=== PATIENT | female | born 1980 | race African-American/Black ===

== ENCOUNTER 2021-02-05 20:51 | Emergency (ER) | payer SELFPAY | END 2021-02-05 22:00 | disposition left against medical advice (07) | LOC: ER 20:51 | DX: Z46.6 Encounter for fitting and adjustment of urinary device (principal); Z53.21 Procedure and treatment not carried out due to patient leaving prior to being seen by health care provider ==

== ENCOUNTER 2021-10-14 15:09 | Inpatient (IN) | payer MEDICAID ==
[2021-10-14] VITALS (7 sets, daily range): BP systolic 83–91; BP diastolic 51–64
[~2021-10-14] VITALS: Ht 172.7 cm; Wt 67.4 kg
[2021-10-14] MEDS ORDERED: IV NORMAL SALINE 1000ML BAG 1,000 ML IV ONE (15:30)
[2021-10-14] MEDS ORDERED: IV NORMAL SALINE 1000ML BAG 1,000 ML IV SCH (15:30)
--- NOTE | 2021-10-14 15:34 | RAD ---
Chest AP portable at 1521: Reason for examination: Altered mental status. Heart size is normal. Mediastinum is unremarkable. Lung beatty are clear. No acute bony abnormalities are seen. IMPRESSION: No acute cardiopulmonary disease evident. Electronically signed by: Dolores Guerrero MD (10/14/2021 3:31 PM) SATISH
[2021-10-14] MEDS ORDERED: INSULIN REGULAR 100 UNIT/ML 3ML VIAL. IV ONE ×2 (16:30→17:45)
[2021-10-14 16:35] LABS: BASO % 0 % (0-3); EOS % 0 % (0-3); LYMPH # 1.2 x10^3/uL (1.0-4.8); LYMPH % 10 % (24-48); MEAN CORPUSCULAR HEMOGLOBIN 29 pg (25-35); MEAN CORPUSCULAR HGB CONC 30 g/dL (31-37); MEAN CORPUSCULAR VOLUME 97 fL (79-100); MONO # 0.7 x10^3/uL (0.0-1.1); MONO % 6 % (0-9); NEUT # 10.1 x10^3/uL (1.8-7.7); NEUT % 84 % (31-73); PLATELET COUNT 335 x10^3/uL (140-400); RED BLOOD COUNT 2.05 x10^6/uL (3.50-5.40); RED CELL DISTRIBUTION WIDTH 17.2 % (11.5-14.5)
[2021-10-14 16:38] LABS: HEMOGLOBIN 5.9 g/dL (12.0-15.5)
[2021-10-14] MEDS ORDERED: CALCIUM GLUCONATE 1,000 MG/10 ML VIAL. IVP ONE (16:45)
--- NOTE | 2021-10-14 16:49 | PHYS DOC ---
Past Medical History Additional Past Medical Histor: SUPRAPUBIC CATH Past Surgical History: Other Additional Past Surgical Histo: LEFT TOES AMPUTATED, General Adult EDM: Chief Complaint: ALTERED MENTAL STATUS HPI: HPI: Patient is a 41 year old [f__sex] who presents with [] Review of Systems: Review of Systems: Unable to obtain due to mental status Heart Score: C/O Chest Pain: No Risk Factors: Risk Factors: DM, Current or recent (<one month) smoker, HTN, HLP, family history of CAD, obesity. Risk Scores: Score 0 - 3: 2.5% MACE over next 6 weeks - Discharge Home Score 4 - 6: 20.3% MACE over next 6 weeks - Admit for Clinical Observation Score 7 - 10: 72.7% MACE over next 6 weeks - Early Invasive Strategies Current Medications: Current Medications Medications (Trade) Dose Ordered Sig/Miriam Start Time Stop Time Status Last Admin Dose Admin Calcium Gluconate (Calcium Gluconate) 1,000 mg 1X ONCE 10/14/21 16:45 10/14/21 16:46 10/14/21 16:34 1,000 MG Insulin Human Regular (HumuLIN R VIAL) 10 unit 1X ONCE 10/14/21 16:30 10/14/21 16:31 DC 10/14/21 16:34 10 UNIT Sodium Chloride 1,000 ml @ 1,000 mls/hr 1X ONCE 10/14/21 15:30 10/14/21 16:29 DC 10/14/21 15:25 1,000 MLS/HR Allergies: Allergies: Allergies Coded Allergies Type Severity Reaction Last Updated Verified Unable to Assess 10/14/21 No Physical Exam: PE: Constitutional: Well developed, obtunded, retracts to painful stimuli. [] HENT: Normocephalic, atraumatic, bilateral external ears normal, oropharynx moist, no oral exudates, nose normal. [] Eyes: PERRLA, sluggish pupils, EOMI, conjunctiva normal, no discharge. [] Neck: Normal range of motion, no tenderness, supple, no stridor. [] Cardiovascular: Tachycardic, no murmur [] Lungs & Thorax: Bilateral breath sounds clear to auscultation [] Abdomen: Bowel sounds normal, soft, no tenderness, no masses, no pulsatile masses. Suprapubic catheter in place [] Skin: Lower extremity rashes bilaterally Back: No tenderness, no CVA tenderness. [] Extremities: Toe amputations noted [] Neurologic: Not oriented, obtunded, no focal deficits noted. [] Psychologic: Affect normal, judgement normal, mood normal. [] Current Patient Data: Labs: Laboratory Tests Test 10/14/21 16:10 White Blood Count 12.0 x10^3/uL (4.0-11.0) H Red Blood Count 2.05 x10^6/uL (3.50-5.40) L Hemoglobin 5.9 g/dL (12.0-15.5) *L Hematocrit 20.0 % (36.0-47.0) L Mean Corpuscular Volume 97 fL (79-100) Mean Corpuscular Hemoglobin 29 pg (25-35) Mean Corpuscular Hemoglobin Concent 30 g/dL (31-37) L Red Cell Distribution Width 17.2 % (11.5-14.5) H Platelet Count 335 x10^3/uL (140-400) Neutrophils (%) (Auto) 84 % (31-73) H Lymphocytes (%) (Auto) 10 % (24-48) L Monocytes (%) (Auto) 6 % (0-9) Eosinophils (%) (Auto) 0 % (0-3) Basophils (%) (Auto) 0 % (0-3) Neutrophils # (Auto) 10.1 x10^3/uL (1.8-7.7) H Lymphocytes # (Auto) 1.2 x10^3/uL (1.0-4.8) Monocytes # (Auto) 0.7 x10^3/uL (0.0-1.1) Eosinophils # (Auto) 0.0 x10^3/uL (0.0-0.7) Basophils # (Auto) 0.0 x10^3/uL (0.0-0.2) Laboratory Tests 10/14/21 16:10 Vital Signs: Vital Signs Date Time Temp Pulse Resp B/P (MAP) Pulse Ox O2 Delivery O2 Flow Rate FiO2 10/14/21 15:09 98 16 82/50 (61) 99 EKG: EKG: Peaked T waves [] Radiology/Procedures: Radiology/Procedures: Chest x-ray without any acute findings CT head within normal limits [] Impression: Altered mental status, hyperglycemia Course & Med Decision Making: Course & Med Decision Making Pertinent Labs and Imaging studies reviewed. (See chart for details) 41-year-old female seen and examined by myself, brought in by EMS. Unknown history, patient altered. Will attempt to speak to family. Central line placed, serum labs and urinalysis ordered. Recheck 1648: Still awaiting labs, patient mother interviewed. Patient found down in bedroom. Per mother, patient has not been feeling well over the last week. Patient has multiple comorbidities. 1715: Patient on 15 units of Lantus and 22 of Toujeo at home with TID humalog. 1735: Glucose 948, potassium 8.5, CO2 6, GFR 11, creatinine 4.4. Critical patient, patient given calcium gluconate, started on insulin drip. Given 2 L normal saline, third liter started. Patient admitted to the service of Dr. Geller to ICU Pt in stable, but guarded condition Kishore Disclaimer: Kishore Disclaimer: This electronic medical record was generated, in whole or in part, using a voice recognition dictation system. Departure Departure Referrals: NO PCP (PCP) AUBRIE PELAYO MD October 14, 2021 16:49
[2021-10-14 16:58] LABS: PROTHROMBIN TIME PATIENT 16.9 SEC (11.7-14.0)
--- NOTE | 2021-10-14 16:58 | RAD ---
XR CHEST 1V Clinical History: Reason: CVL placement / Spl. Instructions: / History: Technique: AP view of the chest was obtained at 10/14/2021 4:14 PM. Comparison: None. Findings: The left jugular line crosses the midline and is directed downward to the right near the confluence o f the great veins. The cardiomediastinal silhouette is normal. The pulmonary vasculature is normal. The lungs and pleura l margins are clear. Impression: 1. The right jugular line has its tip near the confluence of the great veins. 2. No pneumothorax. Electronically signed by: Sharath Rees III, MD (10/14/2021 4:56 PM) [facility]
--- NOTE | 2021-10-14 16:58 | EKG ---
[facility] [address] [place] [address] Test Date: 2021-10-14 Test Time: 16:12:34 Pat Name: CAT LYNN Department: Room: Gender: F [employer]: : 1980 Requested By: AUBRIE Asif Number: [id number] Reading MD: Kvng Toney Measurements Intervals [place] Rate: 94 P: 208 VT: 166 QRS: -60 QRSD: 112 T: 36 QT: 400 QTc: 500 Interpretive Statements SINUS RHYTHM ABNORMAL LEFT AXIS DEVIATION LEFT ANTERIOR FASCICULAR BLOCK PROLONGED QT ABNORMAL ECG RI6.02 No previous ECG available for comparison Electronically Signed On 10-16-2021 10:08:04 CDT by Kvng Tonye
[2021-10-14 17:02] LABS: ALBUMIN 1.6 g/dL (3.4-5.0); ALBUMIN/GLOBULIN RATIO 0.3 (1.0-1.7); CALCIUM 7.9 mg/dL (8.5-10.1); CREATININE 4.4 mg/dL (0.6-1.0); MAGNESIUM 2.2 mg/dL (1.8-2.4); TOTAL BILIRUBIN 0.5 mg/dL (0.2-1.0); TOTAL PROTEIN 7.2 g/dL (6.4-8.2)
[2021-10-14] MEDS ORDERED: GABA600T7 PO (17:07)
[2021-10-14] MEDS ORDERED: HYDR-2765 PO (17:09)
[2021-10-14] MEDS ORDERED: FLUC200T6 PO (17:09)
[2021-10-14] MEDS ORDERED: HYOS0.1222 PO (17:09)
[2021-10-14] MEDS ORDERED: ZOLP10TA PO (17:09)
[2021-10-14] MEDS ORDERED: ATOR40TA59 PO (17:10)
[2021-10-14] MEDS ORDERED: MIDO2.5T PO (17:10)
[2021-10-14] MEDS ORDERED: DULO30CA2 PO (17:11)
[2021-10-14] MEDS ORDERED: FERR-36 PO (17:12)
--- NOTE | 2021-10-14 17:19 | RAD ---
CT Head W/O Contrast: History: Reason: altered mental status / Spl. Instructions: / History: Comparison: none Axial images were obtained without contrast. The bone and white matter appears normal and symmetrical for the patients age. There is no mass effe ct, extraaxial fluid collections or hydrocephalus. There is no gross bleed. There is no focal loss of bone-white matter distinction to suggest acute ischemia, i.e. stroke. Impression: No acute findings. PQRS Compliance Statement: One or more of the following individualized dose reduction techniques were utilized for this examinat ion: 1. Automated exposure control 2. Adjustment of the mA and/or kV according to patient size 3. Use of iterative reconstruction technique Electronically signed by: Sharath Rees III, MD (10/14/2021 5:16 PM) [facility]
[2021-10-14 17:26] LABS: POTASSIUM 8.5 mmol/L (3.5-5.1)
[2021-10-14] MEDS ORDERED: PIPERACILLIN/TAZOBACTAM 3.375 GM in IV NORMAL SALINE 50ML 50 ML IV ONE (17:30)
--- NOTE | 2021-10-14 17:42 | PDOC1 ---
History and Physical Date of Service: DOS: DATE: 10/14/21 TIME: 17:37 Chief Complaint: Chief Complain: Found unresponsive History of Present Illness: HPI: History obtained from discussion with the ED physician and mother at bedside 41-year-old female with past medical history of diabetes mellitus type 1, insulin-dependent, multiple digital amputations and nonhealing right heel wound, suprapubic catheter who presents with being found unresponsive. Patient been sick for a long time and has been noncompliant with her medications. She was seen at recently but the mother is unsure why. Patient is unable to provide any of her own history due to lethargy and some altered mental status. Patient is speaking nonsensical words. Review of systems is limited due to this. Past Medical/Surgical History: PMH/PSH: Diabetes mellitus type 1, suprapubic catheter, multiple amputations which includes her bilateral digits, left toes Allergies: Allergies: Coded Allergies: Unable to Assess (Unverified , 10/14/21) AMS AT ADMIT Family History: Family History: Diabetes Social History: Social History: Limited due to altered mental status Current Medications: Current Medications Current Medications Sodium Chloride 1,000 ml @ 1,000 mls/hr Q1H IV Last administered on 10/14/21at 16:27; Start 10/14/21 at 15:30; Stop 10/14/21 at 16:29; Status DC Sodium Chloride 1,000 ml @ 1,000 mls/hr 1X ONCE IV Last administered on 10/14/21at 15:25; Start 10/14/21 at 15:30; Stop 10/14/21 at 16:29; Status DC Insulin Human Regular (HumuLIN R VIAL) 10 unit 1X ONCE IV Last administered on 10/14/21at 16:34; Start 10/14/21 at 16:30; Stop 10/14/21 at 16:31; Status DC Calcium Gluconate (Calcium Gluconate) 1,000 mg 1X ONCE IVP Last administered on 10/14/21at 16:34; Start 10/14/21 at 16:45; Stop 10/14/21 at 16:46; Status DC Piperacillin Sod/ Tazobactam Sod 3.375 gm/Sodium Chloride 50 ml @ 100 mls/hr 1X ONCE IV ; Start 10/14/21 at 17:30; Stop 10/14/21 at 17:29; Status DC Insulin Human Regular (HumuLIN R VIAL) 10 unit 1X ONCE IV ; Start 10/14/21 at 17:45; Stop 10/14/21 at 17:46 Insulin Human Regular 100 unit/ Sodium Chloride 101 ml @ 0 mls/hr 1X ONCE IV ; Start 10/14/21 at 18:00; Stop 10/14/21 at 18:01 Piperacillin Sod/ Tazobactam Sod 2.25 gm/Sodium Chloride 50 ml @ 100 mls/hr 1X ONCE IV ; Start 10/14/21 at 18:00; Stop 10/14/21 at 18:29 Piperacillin Sod/ Tazobactam Sod (Zosyn Per Pharmacy) 1 each PRN DAILY PRN MC SEE COMMENTS; Start 10/14/21 at 17:45; Status UNV Vancomycin HCl (Vanco Per Pharmacy) 1 each PRN DAILY PRN MC SEE COMMENTS; Start 10/14/21 at 17:45; Status UNV Sennosides (Senna) 17.2 mg PRN BID PRN PO CONSTIPATION; Start 10/14/21 at 17:45; Status UNV Docusate Sodium (Colace) 100 mg PRN DAILY PRN PO HARD STOOLS; Start 10/14/21 at 17:45; Status UNV Ondansetron HCl (Zofran) 4 mg PRN Q6HRS PRN IVP NAUSEA/VOMITING, 1st CHOICE; Start 10/14/21 at 17:45; Status UNV Dextrose (Dextrose 50%-Water Syringe) 12.5 gm PRN Q15MIN PRN IV SEE COMMENTS; Start 10/14/21 at 17:45; Status UNV Sodium Chloride 1,000 ml @ 200 mls/hr Q5H IV ; Start 10/14/21 at 17:45; Stop 10/15/21 at 17:44; Status UNV Acetaminophen (Tylenol) 650 mg PRN Q4HRS PRN PO TEMP OVER 100.4F OR MILD PAIN; Start 10/14/21 at 17:45; Status UNV Lorazepam (Ativan) 0.5 mg PRN Q6HRS PRN PO ANXIETY / AGITATION; Start 10/14/21 at 17:45; Status UNV Lorazepam (Ativan Inj) 0.25 mg PRN Q4HRS PRN IV ANXIETY / AGITATION; Start 10/14/21 at 17:45; Status UNV Heparin Sodium (Porcine) (Heparin Sodium) 5,000 unit Q12HR SQ ; Start 10/14/21 at 21:00; Status UNV Acetaminophen/ Hydrocodone Bitart (Lortab 5/325) 1 tab PRN Q4HRS PRN PO MILD PAIN 1-3; Start 10/14/21 at 17:45; Status UNV Morphine Sulfate (Morphine Sulfate) 1 mg PRN Q1HR PRN IV PAIN; Start 10/14/21 at 17:45; Status UNV Active Scripts Active Reported Iron (Ferrous Sulfate) 325 Mg Tablet 1 Tab PO DAILY 30 Days Cymbalta (Duloxetine Hcl) 30 Mg Capsule. 1 Cap PO DAILY Atorvastatin Calcium 40 Mg Tablet 1 Tab PO DAILY Midodrine Hcl 2.5 Mg Tablet 2.5 Mg PO DAILY Hydrocodone-Apap 7.5-325 (Hydrocodone Bit/Acetaminophen) 1 Tab Tablet 1 Tab PO PRN Q6HRS PRN Ambien (Zolpidem Tartrate) 10 Mg Tablet 10 Mg PO PRN QHS PRN Fluconazole 200 Mg Tablet 1 Tab PO DAILY Hyoscyamine Sulfate 0.125 Mg Tab.rapdis 0.125 Mg PO Q4HRS Gabapentin 600 Mg Tablet 900 Mg PO DAILY ROS: Review of Systems Review of System REVIEW OF SYSTEMS: Limited due to altered mental status Physical Exam: Vital Signs: Vital Signs Date Time Temp Pulse Resp B/P (MAP) Pulse Ox O2 Delivery O2 Flow Rate FiO2 10/14/21 15:09 98 16 82/50 (61) 99 Physcial Exam: General: malnourishment disheveled appearing. Cachectic HEENT: Pupils equally round and reactive to light, EOMI, no discharge, normal conjunctiva Neck: Supple, no nuchal rigidity, no JVD, trachea midline, no tenderness. Left IJ placed central line. Cardiac: RRR, no murmurs, no gallops, no rubs Chest/Lungs: CTAB, no wheeze, no rhonchi, no crackles Abdomen: soft, non-distended, no guarding, no peritoneal signs, non-tender suprapubic catheter in place without any surrounding signs of infection. There is purulent cloudy drainage of urine in the Sifuentes bag. Back: No tenderness Extremities: Multiple bilateral digits have been amputated. There is a nonhealing open and ulcer on the heel of the right heel foot. Multiple old appearing skin lesions on the shins. Neuro: Patient is alert and awake but lethargic and speaking in nonsensical words. GCS of 12 Labs: Labs: Laboratory Tests Test 10/14/21 16:10 White Blood Count 12.0 x10^3/uL (4.0-11.0) Red Blood Count 2.05 x10^6/uL (3.50-5.40) Hemoglobin 5.9 g/dL (12.0-15.5) Hematocrit 20.0 % (36.0-47.0) Mean Corpuscular Volume 97 fL (79-100) Mean Corpuscular Hemoglobin 29 pg (25-35) Mean Corpuscular Hemoglobin Concent 30 g/dL (31-37) Red Cell Distribution Width 17.2 % (11.5-14.5) Platelet Count 335 x10^3/uL (140-400) Neutrophils (%) (Auto) 84 % (31-73) Lymphocytes (%) (Auto) 10 % (24-48) Monocytes (%) (Auto) 6 % (0-9) Eosinophils (%) (Auto) 0 % (0-3) Basophils (%) (Auto) 0 % (0-3) Neutrophils # (Auto) 10.1 x10^3/uL (1.8-7.7) Lymphocytes # (Auto) 1.2 x10^3/uL (1.0-4.8) Monocytes # (Auto) 0.7 x10^3/uL (0.0-1.1) Eosinophils # (Auto) 0.0 x10^3/uL (0.0-0.7) Basophils # (Auto) 0.0 x10^3/uL (0.0-0.2) Prothrombin Time 16.9 SEC (11.7-14.0) Prothromb Time International Ratio 1.4 (0.8-1.1) Activated Partial Thromboplast Time 30 SEC (24-38) Sodium Level 132 mmol/L (136-145) Potassium Level 8.5 mmol/L (3.5-5.1) Chloride Level 93 mmol/L (98-107) Carbon Dioxide Level 6 mmol/L (21-32) Anion Gap 33 (6-14) Blood Urea Nitrogen 62 mg/dL (7-20) Creatinine 4.4 mg/dL (0.6-1.0) Estimated GFR (Cockcroft-Gault) 11.0 BUN/Creatinine Ratio 14 (6-20) Glucose Level 948 mg/dL (70-99) Lactic Acid Level 3.1 mmol/L (0.4-2.0) Calcium Level 7.9 mg/dL (8.5-10.1) Magnesium Level 2.2 mg/dL (1.8-2.4) Total Bilirubin 0.5 mg/dL (0.2-1.0) Aspartate Amino Transf (AST/SGOT) 25 U/L (15-37) Alanine Aminotransferase (ALT/SGPT) 10 U/L (14-59) Alkaline Phosphatase 128 U/L (46-116) Troponin I High Sensitivity 11 ng/L (4-50) AR-Uuw-U-Type Natriuretic Peptide 2969 pg/mL (0-124) Total Protein 7.2 g/dL (6.4-8.2) Albumin 1.6 g/dL (3.4-5.0) Albumin/Globulin Ratio 0.3 (1.0-1.7) Lipase 145 U/L (73-393) Thyroid Stimulating Hormone (TSH) 0.830 uIU/mL (0.358-3.74) Laboratory Tests Test 10/14/21 16:10 White Blood Count 12.0 x10^3/uL (4.0-11.0) Red Blood Count 2.05 x10^6/uL (3.50-5.40) Hemoglobin 5.9 g/dL (12.0-15.5) Hematocrit 20.0 % (36.0-47.0) Mean Corpuscular Volume 97 fL (79-100) Mean Corpuscular Hemoglobin 29 pg (25-35) Mean Corpuscular Hemoglobin Concent 30 g/dL (31-37) Red Cell Distribution Width 17.2 % (11.5-14.5) Platelet Count 335 x10^3/uL (140-400) Neutrophils (%) (Auto) 84 % (31-73) Lymphocytes (%) (Auto) 10 % (24-48) Monocytes (%) (Auto) 6 % (0-9) Eosinophils (%) (Auto) 0 % (0-3) Basophils (%) (Auto) 0 % (0-3) Neutrophils # (Auto) 10.1 x10^3/uL (1.8-7.7) Lymphocytes # (Auto) 1.2 x10^3/uL (1.0-4.8) Monocytes # (Auto) 0.7 x10^3/uL (0.0-1.1) Eosinophils # (Auto) 0.0 x10^3/uL (0.0-0.7) Basophils # (Auto) 0.0 x10^3/uL (0.0-0.2) Prothrombin Time 16.9 SEC (11.7-14.0) Prothromb Time International Ratio 1.4 (0.8-1.1) Activated Partial Thromboplast Time 30 SEC (24-38) Sodium Level 132 mmol/L (136-145) Potassium Level 8.5 mmol/L (3.5-5.1) Chloride Level 93 mmol/L (98-107) Carbon Dioxide Level 6 mmol/L (21-32) Anion Gap 33 (6-14) Blood Urea Nitrogen 62 mg/dL (7-20) Creatinine 4.4 mg/dL (0.6-1.0) Estimated GFR (Cockcroft-Gault) 11.0 BUN/Creatinine Ratio 14 (6-20) Glucose Level 948 mg/dL (70-99) Lactic Acid Level 3.1 mmol/L (0.4-2.0) Calcium Level 7.9 mg/dL (8.5-10.1) Magnesium Level 2.2 mg/dL (1.8-2.4) Total Bilirubin 0.5 mg/dL (0.2-1.0) Aspartate Amino Transf (AST/SGOT) 25 U/L (15-37) Alanine Aminotransferase (ALT/SGPT) 10 U/L (14-59) Alkaline Phosphatase 128 U/L (46-116) Troponin I High Sensitivity 11 ng/L (4-50) PJ-Tmf-R-Type Natriuretic Peptide 2969 pg/mL (0-124) Total Protein 7.2 g/dL (6.4-8.2) Albumin 1.6 g/dL (3.4-5.0) Albumin/Globulin Ratio 0.3 (1.0-1.7) Lipase 145 U/L (73-393) Thyroid Stimulating Hormone (TSH) 0.830 uIU/mL (0.358-3.74) Images: Images PROCEDURE: CT HEAD WO CONTRAST CT Head W/O Contrast: History: Reason: altered mental status / Spl. Instructions: / History: Comparison: none Axial images were obtained without contrast. The bone and white matter appears normal and symmetrical for the patients age. There is no mass effect, extraaxial fluid collections or hydrocephalus. There is no gross bleed. There is no focal loss of bone-white matter distinction to suggest acute ischemia, i.e. stroke. Impression: No acute findings. PROCEDURE: PORTABLE CHEST 1V XR CHEST 1V Clinical History: Reason: CVL placement / Spl. Instructions: / History: Technique: AP view of the chest was obtained at 10/14/2021 4:14 PM. Comparison: None. Findings: The left jugular line crosses the midline and is directed downward to the right near the confluence of the great veins. The cardiomediastinal silhouette is normal. The pulmonary vasculature is normal. The lungs and pleural margins are clear. Impression: 1. The right jugular line has its tip near the confluence of the great veins. 2. No pneumothorax. Assessment/Plan Assessment/Plan Sepsis Hemodynamic instability Acute metabolic encephalopathy DKA Severe hyperkalemia with EKG changes Anion gap metabolic acidosis due to above TAMARA due to vasomotor nephropathy Normocytic anemia due to MARISELA versus acute blood loss Severe protein malnutrition Admit to ICU for further management Continue empiric IV antibiotics Pending urine analysis and urine cultures ABG on admission pending urine and blood ketones Pending plasma osmolarity Continue serial inspections and examination for sources that caused ketoacidotic state Continue IV insulin starting at 0.1 units per kg When glucose is less than 200, AG is closed, patient able to eat, and HCO3 greater than 15, then transition with subcu insulin 0.1 units/kg every 2 hours for at least 2 hours Continue IV fluids of 1 to 1.5 L/h until a total of 5 L is replenished Switch to one half NS at half the rate if NA is normal or elevated As needed D50 W or add D5 to IV fluids if Accu-Cheks are less than 200 Maintain potassium between 3.5-5, if potassium falls below 3.3, stop insulin and add 40 mEq/h of potassium Maintained p.o. 3 greater than 1.0 If arterial pH is below 6.9, give 100 mEq of sodium bicarb +20 mEq of potassium Every 2-4 hours BMP and a be checked until stable Every hour Accu-Cheks while on insulin Urology consult for suprapubic catheter management Pending occult stool collection Strict I's/O Monitor urine output Avoid nephrotoxic agents Pending 2 units PRBC transfusion Trend CBC Heparin for DVT prophylaxis Protonix GI prophylaxis ADA diet CODE STATUS full Discussed with RN and SW Disposition continue ICU care DPOA: Mother A total of 50 minutes of critical care time was spent in reviewing chart, labs, and images. Discussed with RN and SW. Justifications for Admission Other Justification ABHI JETER MD October 14, 2021 17:42
[2021-10-14] MEDS ORDERED: LORazepam 0.5 MG TABLET PO PRN (17:45)
[2021-10-14] MEDS ORDERED: MORPHINE SULFATE 2 MG/ML INJ. IVP PRN (17:45)
[2021-10-14] MEDS ORDERED: PIP/TAZO PER PHARMACY MC PRN (17:45)
[2021-10-14] MEDS ORDERED: diphenhydrAMINE 50 MG/ML VIAL IVP PRN (17:45)
[2021-10-14] MEDS ORDERED: ONDANSETRON PF 4 MG/2 ML VIAL. IVP PRN (17:45)
[2021-10-14] MEDS ORDERED: DEXTROSE 50% 25 GM / 50ML DISP.SYRIN. IV PRN (17:45)
[2021-10-14] MEDS ORDERED: PROCHLORPERAZINE 10 MG/2 ML VIAL. IV PRN (17:45)
[2021-10-14] MEDS ORDERED: DOCUSATE SODIUM 100 MG CAPSULE. PO PRN (17:45)
[2021-10-14] MEDS ORDERED: ZOLPIDEM 5 MG TABLET. PO PRN (17:45)
[2021-10-14] MEDS ORDERED: ACETAMINOPHEN 325 MG TABLET. PO PRN (17:45)
[2021-10-14] MEDS ORDERED: diphenhydrAMINE HCL 25 MG CAPSULE PO PRN ×2 (17:45)
[2021-10-14] MEDS ORDERED: SENNOSIDES 8.6 MG TABLET PO PRN (17:45)
[2021-10-14] MEDS ORDERED: PIPERACILLIN/TAZOBACTAM 2.25 GM in IV NORMAL SALINE 50ML 50 ML IV ONE (18:00)
[2021-10-14] MEDS ORDERED: INSULIN REGULAR VIAL 100 UNIT in IV NORMAL SALINE 100ML 100 ML IV ONE (18:00)
[2021-10-14 18:11] LABS: BASE EXCESS COOX -21 mmol/L (-3-3); HCO3 COOX 5 mmol/L (21-28); METHEMOGLOBIN 0.8 % (0.0-1.9); OXYHEMOGLOBIN 96.3 %; PO2 COOX 131 mmHg (75-108); SAT O2 COOX 97 % (92-99)
[2021-10-14 18:13] LABS: PCO2 COOX 15 mmHg (35-46)
[2021-10-14] MEDS: IV NORMAL SALINE 1000ML BAG 1,000 ML IV SCH ×2 (18:44→20:00)
[2021-10-14] MEDS ORDERED: VANCOMYCIN 750 MG in IV NORMAL SALINE 250ML 250 ML IV ONE (19:00)
[2021-10-14 19:23] LABS: BACTERIA,URINE MANY /HPF (0-FEW); WBC,URINE >40 /HPF (0-4)
[2021-10-14 19:28] LABS: AMPHETAMINE/METHAMPHETAMINE NEG (NEG); BARBITURATES NEG (NEG); BENZODIAZEPINES NEG (NEG); CANNABINOIDS NEG (NEG); COCAINE NEG (NEG); METHADONE NEG (NEG); OPIATES POS (NEG); PHENCYCLIDINE NEG (NEG)
[2021-10-14] MEDS ORDERED: SODIUM BICARB ADULT 8.4% 50 MEQ/50 ML DISP.SYRIN. ONE (19:54)
[2021-10-14] MEDS ORDERED: SODIUM BICARB ADULT 8.4% 50 MEQ/50 ML DISP.SYRIN. IV ONE (20:30)
[2021-10-14] MEDS: HEPARIN for SUB-Q USE 5,000 UNIT/ML VIAL. SQ SCH (21:00)
[2021-10-14] MEDS: PANTOPRAZOLE IV PUSH 40 MG VIAL. IVP SCH (21:22)
[2021-10-14 21:33] LABS: CALCIUM 7.8 mg/dL (8.5-10.1); CREATININE 4.3 mg/dL (0.6-1.0); GFR 13.7; MAGNESIUM 1.8 mg/dL (1.8-2.4); PHOSPHORUS 4.2 mg/dL (2.6-4.7)
[2021-10-15] VITALS (23 sets, daily range): BP systolic 77–137; BP diastolic 59–88
[2021-10-15] MEDS ORDERED: INSULIN REGULAR VIAL 100 UNIT in IV NORMAL SALINE 100ML 100 ML IV PRN
[2021-10-15] MEDS: IV NORMAL SALINE 1000ML BAG 1,000 ML IV SCH ×3 (00:34→16:40)
[2021-10-15 01:50] LABS: CALCIUM 7.6 mg/dL (8.5-10.1); GFR 14.9; MAGNESIUM 1.6 mg/dL (1.8-2.4); PHOSPHORUS 2.8 mg/dL (2.6-4.7); POTASSIUM 4.5 mmol/L (3.5-5.1)
[2021-10-15] MEDS: IV DEXTROSE 5 %-0.45 % NACL 1,000 ML IV SCH ×3 (01:56→10:50)
[2021-10-15 05:10] LABS: BASO % 0 % (0-3); EOS # 0.1 x10^3/uL (0.0-0.7); EOS % 1 % (0-3); HEMATOCRIT 22.7 % (36.0-47.0); HEMOGLOBIN 7.5 g/dL (12.0-15.5); LYMPH % 18 % (24-48); MEAN CORPUSCULAR HEMOGLOBIN 28 pg (25-35); MEAN CORPUSCULAR HGB CONC 33 g/dL (31-37); MONO # 0.6 x10^3/uL (0.0-1.1); MONO % 6 % (0-9); NEUT # 8.2 x10^3/uL (1.8-7.7); NEUT % 75 % (31-73); PLATELET COUNT 277 x10^3/uL (140-400); RED BLOOD COUNT 2.67 x10^6/uL (3.50-5.40); RED CELL DISTRIBUTION WIDTH 16.8 % (11.5-14.5)
[2021-10-15 05:42] LABS: CALCIUM 7.7 mg/dL (8.5-10.1); CREATININE 3.9 mg/dL (0.6-1.0); GFR 15.3; MAGNESIUM 1.5 mg/dL (1.8-2.4); PHOSPHORUS 2.5 mg/dL (2.6-4.7); POTASSIUM 4.3 mmol/L (3.5-5.1)
[2021-10-15] MEDS: PIPERACILLIN/TAZOBACTAM 2.25 GM in IV NORMAL SALINE 50ML 50 ML IV SCH ×3 (05:50→22:16)
[2021-10-15 05:53] LABS: MEAN CORPUSCULAR VOLUME 85 fL (79-100)
[2021-10-15] MEDS: POTASSIUM CHLORIDE 10MEQ 100 ML IV SCH ×2 (06:35→07:45)
[2021-10-15 08:27] LABS: BASE EXCESS ABG -5 mmol/L (-3-3); HCO3 ABG 20 mmol/L (21-28); PCO2 ABG 38 mmHg (35-46); PO2 ABG 94 mmHg (75-108); SAT O2 ABG 97 % (92-99)
[2021-10-15 08:45] LABS: FIO2 ABG 21%
[2021-10-15] MEDS: PANTOPRAZOLE IV PUSH 40 MG VIAL. IVP SCH (08:47)
[2021-10-15] MEDS: HEPARIN for SUB-Q USE 5,000 UNIT/ML VIAL. SQ SCH ×2 (09:00→20:52)
--- NOTE | 2021-10-15 11:37 | PDOC2 ---
CONSULT Date of Consult Date of Consult DATE: 10/15/21 TIME: 11:29 Reason for Consult Reason for Consult: TAMARA AND HIGH K Referring Physician Referring Physician: STEFFANY Identification/Chief Complaint Chief Complaint CONFUSION Source Source: Chart review History of Present Illness Reason for Visit: THIS IS A 41 YR OLD FOUND UNRESPONSIVE. HAS HX OF DM I WITH MULTIPLE END ORGAN DAMAGE, HX OF NON HEALING WOUNDS AND SPC FOR RETENTION. UNKNOWN IF ANY CKD. SHE IS IN DKA WITH INITIAL K OF 8.5 AND CR OF 4.4 WITH SEVERE MET ACIDOSIS AND AN UTI. SHE IS AROUSABLE BUT CONFUSED. ACIDEMIA WITH PH OF 7.15 WITH MET ACIDOSIS AND ATTEMPTED COMPENSATION WITH RESP ALKALOSIS. CRITICALLY ILL AND IN THE ICU NOW. SHE ALSO HAS MILD LEUCOCYTOSIS AND SEVERE ANEMIA WITH HGB OF 5.9 Past Medical History Past Medical History PAD Cardiovascular: CHF CENTRAL NERVOUS SYSTEM: Periperal neuropathy Renal/: Chronic renal insuff, Other (UNKNOWN) Endocrine: Diabetes Past Surgical History Past Surgical History SPC, DIGIT AMP Family History Family History: Diabetes, Hypertension Social History No ALCOHOL: none Lives: with Family Current Medications Current Medications Current Medications Sodium Chloride 1,000 ml @ 1,000 mls/hr Q1H IV Last administered on 10/14/21at 16:27; Start 10/14/21 at 15:30; Stop 10/14/21 at 16:29; Status DC Sodium Chloride 1,000 ml @ 1,000 mls/hr 1X ONCE IV Last administered on 10/14/21at 15:25; Start 10/14/21 at 15:30; Stop 10/14/21 at 16:29; Status DC Insulin Human Regular (HumuLIN R VIAL) 10 unit 1X ONCE IV Last administered on 10/14/21at 16:34; Start 10/14/21 at 16:30; Stop 10/14/21 at 16:31; Status DC Calcium Gluconate (Calcium Gluconate) 1,000 mg 1X ONCE IVP Last administered on 10/14/21at 16:34; Start 10/14/21 at 16:45; Stop 10/14/21 at 16:46; Status DC Piperacillin Sod/ Tazobactam Sod 3.375 gm/Sodium Chloride 50 ml @ 100 mls/hr 1X ONCE IV ; Start 10/14/21 at 17:30; Stop 10/14/21 at 17:29; Status DC Insulin Human Regular (HumuLIN R VIAL) 10 unit 1X ONCE IV ; Start 10/14/21 at 17:45; Stop 10/14/21 at 17:54; Status DC Insulin Human Regular 100 unit/ Sodium Chloride 101 ml @ 0 mls/hr 1X ONCE IV Last administered on 10/14/21at 18:49; Start 10/14/21 at 18:00; Stop 10/14/21 at 18:01; Status DC Piperacillin Sod/ Tazobactam Sod 2.25 gm/Sodium Chloride 50 ml @ 100 mls/hr 1X ONCE IV Last administered on 10/14/21at 19:56; Start 10/14/21 at 18:00; Stop 10/14/21 at 18:29; Status DC Piperacillin Sod/ Tazobactam Sod (Zosyn Per Pharmacy) 1 each PRN DAILY PRN MC SEE COMMENTS; Start 10/14/21 at 17:45 Vancomycin HCl (Vanco Per Pharmacy) 1 each PRN DAILY PRN MC SEE COMMENTS; Start 10/14/21 at 17:45 Sennosides (Senna) 17.2 mg PRN BID PRN PO CONSTIPATION; Start 10/14/21 at 17:45 Docusate Sodium (Colace) 100 mg PRN DAILY PRN PO HARD STOOLS; Start 10/14/21 at 17:45 Ondansetron HCl (Zofran) 4 mg PRN Q6HRS PRN IVP NAUSEA/VOMITING, 1st CHOICE; Start 10/14/21 at 17:45 Dextrose (Dextrose 50%-Water Syringe) 12.5 gm PRN Q15MIN PRN IV SEE COMMENTS; Start 10/14/21 at 17:45 Sodium Chloride 1,000 ml @ 200 mls/hr Q5H IV Last administered on 10/15/21at 10:51; Start 10/14/21 at 17:45; Stop 10/15/21 at 17:44 Acetaminophen (Tylenol) 650 mg PRN Q4HRS PRN PO TEMP OVER 100.4F OR MILD PAIN; Start 10/14/21 at 17:45 Lorazepam (Ativan) 0.5 mg PRN Q6HRS PRN PO ANXIETY / AGITATION; Start 10/14/21 at 17:45 Lorazepam (Ativan Inj) 0.25 mg PRN Q4HRS PRN IV ANXIETY / AGITATION; Start 10/14/21 at 17:45 Heparin Sodium (Porcine) (Heparin Sodium) 5,000 unit Q12HR SQ ; Start 10/14/21 at 21:00 Acetaminophen/ Hydrocodone Bitart (Lortab 5/325) 1 tab PRN Q4HRS PRN PO MILD PAIN 1-3; Start 10/14/21 at 17:45 Morphine Sulfate (Morphine Sulfate) 1 mg PRN Q1HR PRN IV PAIN; Start 10/14/21 at 17:45 Morphine Sulfate (Morphine Sulfate) 2 mg PRN Q2HR PRN IVP SEVERE PAIN 7-10; Start 10/14/21 at 17:45; Stop 10/15/21 at 17:44 Prochlorperazine Edisylate (Compazine) 10 mg PRN Q6HRS PRN IV NAUSEA/VOMITING, 2nd CHOICE; Start 10/14/21 at 17:45 Diphenhydramine HCl (Benadryl) 25 mg PRN Q6HRS PRN IVP ITCHING; Start 10/14/21 at 17:45 Diphenhydramine HCl (Benadryl) 25 mg PRN Q6HRS PRN PO ITCHING; Start 10/14/21 at 17:45 Diphenhydramine HCl (Benadryl) 25 mg PRN QHS PRN PO INSOMNIA, 1st CHOICE; Start 10/14/21 at 17:45 Zolpidem Tartrate (Ambien) 2.5 mg PRN QHS PRN PO INSOMNIA, 2nd CHOICE; Start 10/14/21 at 17:45 Vancomycin HCl 750 mg/Sodium Chloride 250 ml @ 250 mls/hr 1X ONCE IV Last administered on 10/14/21at 20:01; Start 10/14/21 at 19:00; Stop 10/14/21 at 19:59; Status DC Sodium Bicarbonate (Sodium Bicarb Adult 8.4% Syr) 50 meq 1X ONCE IV Last administered on 10/14/21at 19:57; Start 10/14/21 at 20:30; Stop 10/14/21 at 20:31; Status DC Pantoprazole Sodium (PROTONIX VIAL for IV PUSH) 40 mg DAILYAC IVP Last administered on 10/15/21at 08:47; Start 10/14/21 at 20:30 Sodium Bicarbonate (Sodium Bicarb Adult 8.4% Syr) 50 meq STK-MED ONCE .ROUTE ; Start 10/14/21 at 19:54; Stop 10/14/21 at 19:55; Status DC Piperacillin Sod/ Tazobactam Sod 2.25 gm/Sodium Chloride 50 ml @ 100 mls/hr Q8HRS IV Last administered on 10/15/21at 05:50; Start 10/15/21 at 06:00 Insulin Human Regular 100 unit/ Sodium Chloride 101 ml @ 12 mls/hr CONT PRN IV PER PROTOCOL Last administered on 10/15/21at 00:35; Start 10/15/21 at 00:00 Dextrose/Sodium Chloride 1,000 ml @ 250 mls/hr Q4H IV Last administered on 10/15/21at 10:50; Start 10/15/21 at 02:00 Potassium Chloride/Water 100 ml @ 100 mls/hr Q1H IV Last administered on 10/15/21at 06:35; Start 10/15/21 at 06:45; Stop 10/15/21 at 08:44; Status DC Active Scripts Active Reported Iron (Ferrous Sulfate) 325 Mg Tablet 1 Tab PO DAILY 30 Days Cymbalta (Duloxetine Hcl) 30 Mg Capsule.dr 1 Cap PO DAILY Atorvastatin Calcium 40 Mg Tablet 1 Tab PO DAILY Midodrine Hcl 2.5 Mg Tablet 2.5 Mg PO DAILY Hydrocodone-Apap 7.5-325 (Hydrocodone Bit/Acetaminophen) 1 Tab Tablet 1 Tab PO PRN Q6HRS PRN Ambien (Zolpidem Tartrate) 10 Mg Tablet 10 Mg PO PRN QHS PRN Fluconazole 200 Mg Tablet 1 Tab PO DAILY Hyoscyamine Sulfate 0.125 Mg Tab.rapdis 0.125 Mg PO Q4HRS Gabapentin 600 Mg Tablet 900 Mg PO DAILY Allergies Allergies: Coded Allergies: Unable to Assess (Unverified , 10/14/21) AMS AT ADMIT ROS Review of System UNABLE TO OBTAIN Physical Exam General: Cooperative, No acute distress HEENT: Atraumatic, PERRLA, Other (DRY MUCOSA) Lungs: Clear to auscultation Heart: Regular rate Abdomen: Normal bowel sounds, Soft, No tenderness Extremities: No clubbing Skin: No breakdown Neuro: Other (CONFUSED, NO ASYMMETRY OBVIOUS) Psych/Mental Status: Other (FLAT CONFUSED) MUSCULOSKELETAL: No swelling, Other (DIGIT AMP NOTED) Vitals VITALS Vital Signs Date Time Temp Pulse Resp B/P (MAP) Pulse Ox O2 Delivery O2 Flow Rate FiO2 10/15/21 06:00 90 18 102/68 (79) 100 Room Air 10/15/21 04:00 97.2 97.2 Labs Labs Laboratory Tests Test 10/14/21 16:10 10/14/21 18:04 10/14/21 18:30 10/14/21 19:50 White Blood Count 12.0 x10^3/uL (4.0-11.0) Red Blood Count 2.05 x10^6/uL (3.50-5.40) Hemoglobin 5.9 g/dL (12.0-15.5) Hematocrit 20.0 % (36.0-47.0) Mean Corpuscular Volume 97 fL (79-100) Mean Corpuscular Hemoglobin 29 pg (25-35) Mean Corpuscular Hemoglobin Concent 30 g/dL (31-37) Red Cell Distribution Width 17.2 % (11.5-14.5) Platelet Count 335 x10^3/uL (140-400) Neutrophils (%) (Auto) 84 % (31-73) Lymphocytes (%) (Auto) 10 % (24-48) Monocytes (%) (Auto) 6 % (0-9) Eosinophils (%) (Auto) 0 % (0-3) Basophils (%) (Auto) 0 % (0-3) Neutrophils # (Auto) 10.1 x10^3/uL (1.8-7.7) Lymphocytes # (Auto) 1.2 x10^3/uL (1.0-4.8) Monocytes # (Auto) 0.7 x10^3/uL (0.0-1.1) Eosinophils # (Auto) 0.0 x10^3/uL (0.0-0.7) Basophils # (Auto) 0.0 x10^3/uL (0.0-0.2) Prothrombin Time 16.9 SEC (11.7-14.0) Prothromb Time International Ratio 1.4 (0.8-1.1) Activated Partial Thromboplast Time 30 SEC (24-38) Sodium Level 132 mmol/L (136-145) Potassium Level 8.5 mmol/L (3.5-5.1) Chloride Level 93 mmol/L (98-107) Carbon Dioxide Level 6 mmol/L (21-32) Anion Gap 33 (6-14) Blood Urea Nitrogen 62 mg/dL (7-20) Creatinine 4.4 mg/dL (0.6-1.0) Estimated GFR (Cockcroft-Gault) 11.0 BUN/Creatinine Ratio 14 (6-20) Glucose Level 948 mg/dL (70-99) 685 mg/dL (70-99) Lactic Acid Level 3.1 mmol/L (0.4-2.0) Calcium Level 7.9 mg/dL (8.5-10.1) Magnesium Level 2.2 mg/dL (1.8-2.4) Total Bilirubin 0.5 mg/dL (0.2-1.0) Aspartate Amino Transf (AST/SGOT) 25 U/L (15-37) Alanine Aminotransferase (ALT/SGPT) 10 U/L (14-59) Alkaline Phosphatase 128 U/L (46-116) Creatine Kinase 65 U/L (26-192) Troponin I High Sensitivity 11 ng/L (4-50) GQ-Ngk-W-Type Natriuretic Peptide 2969 pg/mL (0-124) Total Protein 7.2 g/dL (6.4-8.2) Albumin 1.6 g/dL (3.4-5.0) Albumin/Globulin Ratio 0.3 (1.0-1.7) Lipase 145 U/L (73-393) Procalcitonin 0.58 ng/mL (0.00-0.10) Thyroid Stimulating Hormone (TSH) 0.830 uIU/mL (0.358-3.74) O2 Saturation 97 % (92-99) Arterial Blood pH 7.16 (7.35-7.45) Arterial Blood pCO2 at Patient Temp 15 mmHg (35-46) Arterial Blood pO2 at Patient Temp 131 mmHg (75-108) Arterial Blood HCO3 5 mmol/L (21-28) Arterial Blood Base Excess -21 mmol/L (-3-3) Oxyhemoglobin 96.3 % Methemoglobin 0.8 % (0.0-1.9) Carbon Monoxide, Quantitative 0.3 % (0.0-1.9) FiO2 Room air Urine Collection Type U cath Urine Color (Auto) Kay Urine Turbidity Turbid Urine pH (Auto) 5.5 (<5.0-8.0) Urine Specific [place] 1.013 (1.000-1.030) Urine Protein (Auto) 200 mg/dL (Negative) Urine Glucose (Auto)(UA) >=1000 mg/dL (Negative) Urine Ketones (Auto) 60 mg/dL (Negative) Urine Blood (Auto) Large (Negative) Urine Nitrite Negative (Negative) Urine Bilirubin (Auto) Negative (Negative) Urine Urobilinogen (Auto) Normal mg/dL (Normal) Urine Leukocyte Esterase (Auto) Large (Negative) Urine RBC 11-20 /HPF (0-2) Urine WBC >40 /HPF (0-4) Urine Bacteria Many /HPF (0-FEW) Urine Opiates Screen Pos (NEG) Urine Methadone Screen Neg (NEG) Urine Barbiturates Neg (NEG) Urine Phencyclidine Screen Neg (NEG) Urine Amphetamine/Methamphetamine Neg (NEG) Urine Benzodiazepines Screen Neg (NEG) Urine Cocaine Screen Neg (NEG) Urine Cannabinoids Screen Neg (NEG) Urine Ethyl Alcohol Neg (NEG) Test 10/14/21 20:10 10/14/21 21:10 10/14/21 21:40 10/14/21 22:41 Lactic Acid Level 1.8 mmol/L (0.4-2.0) Sodium Level 140 mmol/L (136-145) Potassium Level 5.0 mmol/L (3.5-5.1) Chloride Level 105 mmol/L (98-107) Carbon Dioxide Level 13 mmol/L (21-32) Anion Gap 22 (6-14) Blood Urea Nitrogen 57 mg/dL (7-20) Creatinine 4.3 mg/dL (0.6-1.0) Estimated GFR (Cockcroft-Gault) 13.7 Glucose Level 562 mg/dL (70-99) Calcium Level 7.8 mg/dL (8.5-10.1) Phosphorus Level 4.2 mg/dL (2.6-4.7) Magnesium Level 1.8 mg/dL (1.8-2.4) Troponin I High Sensitivity 21 ng/L (4-50) Glucose (Fingerstick) 493 mg/dL (70-99) 429 mg/dL (70-99) Test 10/14/21 23:44 10/15/21 00:42 10/15/21 01:20 10/15/21 01:46 Glucose (Fingerstick) 361 mg/dL (70-99) 279 mg/dL (70-99) 206 mg/dL (70-99) Sodium Level 143 mmol/L (136-145) Potassium Level 4.5 mmol/L (3.5-5.1) Chloride Level 110 mmol/L (98-107) Carbon Dioxide Level 18 mmol/L (21-32) Anion Gap 15 (6-14) Blood Urea Nitrogen 53 mg/dL (7-20) Creatinine 4.0 mg/dL (0.6-1.0) Estimated GFR (Cockcroft-Gault) 14.9 Glucose Level 250 mg/dL (70-99) Calcium Level 7.6 mg/dL (8.5-10.1) Phosphorus Level 2.8 mg/dL (2.6-4.7) Magnesium Level 1.6 mg/dL (1.8-2.4) Troponin I High Sensitivity 49 ng/L (4-50) Test 10/15/21 02:46 10/15/21 03:47 10/15/21 04:47 10/15/21 05:00 Glucose (Fingerstick) 194 mg/dL (70-99) 174 mg/dL (70-99) 149 mg/dL (70-99) White Blood Count 11.0 x10^3/uL (4.0-11.0) Red Blood Count 2.67 x10^6/uL (3.50-5.40) Hemoglobin 7.5 g/dL (12.0-15.5) Hematocrit 22.7 % (36.0-47.0) Mean Corpuscular Volume 85 fL (79-100) Mean Corpuscular Hemoglobin 28 pg (25-35) Mean Corpuscular Hemoglobin Concent 33 g/dL (31-37) Red Cell Distribution Width 16.8 % (11.5-14.5) Platelet Count 277 x10^3/uL (140-400) Neutrophils (%) (Auto) 75 % (31-73) Lymphocytes (%) (Auto) 18 % (24-48) Monocytes (%) (Auto) 6 % (0-9) Eosinophils (%) (Auto) 1 % (0-3) Basophils (%) (Auto) 0 % (0-3) Neutrophils # (Auto) 8.2 x10^3/uL (1.8-7.7) Lymphocytes # (Auto) 2.0 x10^3/uL (1.0-4.8) Monocytes # (Auto) 0.6 x10^3/uL (0.0-1.1) Eosinophils # (Auto) 0.1 x10^3/uL (0.0-0.7) Basophils # (Auto) 0.0 x10^3/uL (0.0-0.2) Sodium Level 144 mmol/L (136-145) Potassium Level 4.3 mmol/L (3.5-5.1) Chloride Level 112 mmol/L (98-107) Carbon Dioxide Level 21 mmol/L (21-32) Anion Gap 11 (6-14) Blood Urea Nitrogen 50 mg/dL (7-20) Creatinine 3.9 mg/dL (0.6-1.0) Estimated GFR (Cockcroft-Gault) 15.3 Glucose Level 144 mg/dL (70-99) Calcium Level 7.7 mg/dL (8.5-10.1) Phosphorus Level 2.5 mg/dL (2.6-4.7) Magnesium Level 1.5 mg/dL (1.8-2.4) Test 10/15/21 05:47 10/15/21 06:39 10/15/21 07:50 10/15/21 08:25 Glucose (Fingerstick) 127 mg/dL (70-99) 121 mg/dL (70-99) 95 mg/dL (70-99) O2 Saturation 97 % (92-99) Arterial Blood pH 7.34 (7.35-7.45) Arterial Blood pCO2 at Patient Temp 38 mmHg (35-46) Arterial Blood pO2 at Patient Temp 94 mmHg (75-108) Arterial Blood HCO3 20 mmol/L (21-28) Arterial Blood Base Excess -5 mmol/L (-3-3) FiO2 21% Test 10/15/21 08:55 10/15/21 10:02 10/15/21 11:16 Glucose (Fingerstick) 81 mg/dL (70-99) 106 mg/dL (70-99) 112 mg/dL (70-99) Laboratory Tests Test 10/14/21 16:10 10/14/21 18:04 10/14/21 18:30 10/14/21 19:50 White Blood Count 12.0 x10^3/uL (4.0-11.0) Red Blood Count 2.05 x10^6/uL (3.50-5.40) Hemoglobin 5.9 g/dL (12.0-15.5) Hematocrit 20.0 % (36.0-47.0) Mean Corpuscular Volume 97 fL (79-100) Mean Corpuscular Hemoglobin 29 pg (25-35) Mean Corpuscular Hemoglobin Concent 30 g/dL (31-37) Red Cell Distribution Width 17.2 % (11.5-14.5) Platelet Count 335 x10^3/uL (140-400) Neutrophils (%) (Auto) 84 % (31-73) Lymphocytes (%) (Auto) 10 % (24-48) Monocytes (%) (Auto) 6 % (0-9) Eosinophils (%) (Auto) 0 % (0-3) Basophils (%) (Auto) 0 % (0-3) Neutrophils # (Auto) 10.1 x10^3/uL (1.8-7.7) Lymphocytes # (Auto) 1.2 x10^3/uL (1.0-4.8) Monocytes # (Auto) 0.7 x10^3/uL (0.0-1.1) Eosinophils # (Auto) 0.0 x10^3/uL (0.0-0.7) Basophils # (Auto) 0.0 x10^3/uL (0.0-0.2) Prothrombin Time 16.9 SEC (11.7-14.0) Prothromb Time International Ratio 1.4 (0.8-1.1) Activated Partial Thromboplast Time 30 SEC (24-38) Sodium Level 132 mmol/L (136-145) Potassium Level 8.5 mmol/L (3.5-5.1) Chloride Level 93 mmol/L (98-107) Carbon Dioxide Level 6 mmol/L (21-32) Anion Gap 33 (6-14) Blood Urea Nitrogen 62 mg/dL (7-20) Creatinine 4.4 mg/dL (0.6-1.0) Estimated GFR (Cockcroft-Gault) 11.0 BUN/Creatinine Ratio 14 (6-20) Glucose Level 948 mg/dL (70-99) 685 mg/dL (70-99) Lactic Acid Level 3.1 mmol/L (0.4-2.0) Calcium Level 7.9 mg/dL (8.5-10.1) Magnesium Level 2.2 mg/dL (1.8-2.4) Total Bilirubin 0.5 mg/dL (0.2-1.0) Aspartate Amino Transf (AST/SGOT) 25 U/L (15-37) Alanine Aminotransferase (ALT/SGPT) 10 U/L (14-59) Alkaline Phosphatase 128 U/L (46-116) Creatine Kinase 65 U/L (26-192) Troponin I High Sensitivity 11 ng/L (4-50) VU-Ugr-U-Type Natriuretic Peptide 2969 pg/mL (0-124) Total Protein 7.2 g/dL (6.4-8.2) Albumin 1.6 g/dL (3.4-5.0) Albumin/Globulin Ratio 0.3 (1.0-1.7) Lipase 145 U/L (73-393) Procalcitonin 0.58 ng/mL (0.00-0.10) Thyroid Stimulating Hormone (TSH) 0.830 uIU/mL (0.358-3.74) O2 Saturation 97 % (92-99) Arterial Blood pH 7.16 (7.35-7.45) Arterial Blood pCO2 at Patient Temp 15 mmHg (35-46) Arterial Blood pO2 at Patient Temp 131 mmHg (75-108) Arterial Blood HCO3 5 mmol/L (21-28) Arterial Blood Base Excess -21 mmol/L (-3-3) Oxyhemoglobin 96.3 % Methemoglobin 0.8 % (0.0-1.9) Carbon Monoxide, Quantitative 0.3 % (0.0-1.9) FiO2 Room air Urine Collection Type U cath Urine Color (Auto) Kay Urine Turbidity Turbid Urine pH (Auto) 5.5 (<5.0-8.0) Urine Specific [place] 1.013 (1.000-1.030) Urine Protein (Auto) 200 mg/dL (Negative) Urine Glucose (Auto)(UA) >=1000 mg/dL (Negative) Urine Ketones (Auto) 60 mg/dL (Negative) Urine Blood (Auto) Large (Negative) Urine Nitrite Negative (Negative) Urine Bilirubin (Auto) Negative (Negative) Urine Urobilinogen (Auto) Normal mg/dL (Normal) Urine Leukocyte Esterase (Auto) Large (Negative) Urine RBC 11-20 /HPF (0-2) Urine WBC >40 /HPF (0-4) Urine Bacteria Many /HPF (0-FEW) Urine Opiates Screen Pos (NEG) Urine Methadone Screen Neg (NEG) Urine Barbiturates Neg (NEG) Urine Phencyclidine Screen Neg (NEG) Urine Amphetamine/Methamphetamine Neg (NEG) Urine Benzodiazepines Screen Neg (NEG) Urine Cocaine Screen Neg (NEG) Urine Cannabinoids Screen Neg (NEG) Urine Ethyl Alcohol Neg (NEG) Test 10/14/21 20:10 10/14/21 21:10 10/14/21 21:40 10/14/21 22:41 Lactic Acid Level 1.8 mmol/L (0.4-2.0) Sodium Level 140 mmol/L (136-145) Potassium Level 5.0 mmol/L (3.5-5.1) Chloride Level 105 mmol/L (98-107) Carbon Dioxide Level 13 mmol/L (21-32) Anion Gap 22 (6-14) Blood Urea Nitrogen 57 mg/dL (7-20) Creatinine 4.3 mg/dL (0.6-1.0) Estimated GFR (Cockcroft-Gault) 13.7 Glucose Level 562 mg/dL (70-99) Calcium Level 7.8 mg/dL (8.5-10.1) Phosphorus Level 4.2 mg/dL (2.6-4.7) Magnesium Level 1.8 mg/dL (1.8-2.4) Troponin I High Sensitivity 21 ng/L (4-50) Glucose (Fingerstick) 493 mg/dL (70-99) 429 mg/dL (70-99) Test 10/14/21 23:44 10/15/21 00:42 10/15/21 01:20 10/15/21 01:46 Glucose (Fingerstick) 361 mg/dL (70-99) 279 mg/dL (70-99) 206 mg/dL (70-99) Sodium Level 143 mmol/L (136-145) Potassium Level 4.5 mmol/L (3.5-5.1) Chloride Level 110 mmol/L (98-107) Carbon Dioxide Level 18 mmol/L (21-32) Anion Gap 15 (6-14) Blood Urea Nitrogen 53 mg/dL (7-20) Creatinine 4.0 mg/dL (0.6-1.0) Estimated GFR (Cockcroft-Gault) 14.9 Glucose Level 250 mg/dL (70-99) Calcium Level 7.6 mg/dL (8.5-10.1) Phosphorus Level 2.8 mg/dL (2.6-4.7) Magnesium Level 1.6 mg/dL (1.8-2.4) Troponin I High Sensitivity 49 ng/L (4-50) Test 10/15/21 02:46 10/15/21 03:47 10/15/21 04:47 10/15/21 05:00 Glucose (Fingerstick) 194 mg/dL (70-99) 174 mg/dL (70-99) 149 mg/dL (70-99) White Blood Count 11.0 x10^3/uL (4.0-11.0) Red Blood Count 2.67 x10^6/uL (3.50-5.40) Hemoglobin 7.5 g/dL (12.0-15.5) Hematocrit 22.7 % (36.0-47.0) Mean Corpuscular Volume 85 fL (79-100) Mean Corpuscular Hemoglobin 28 pg (25-35) Mean Corpuscular Hemoglobin Concent 33 g/dL (31-37) Red Cell Distribution Width 16.8 % (11.5-14.5) Platelet Count 277 x10^3/uL (140-400) Neutrophils (%) (Auto) 75 % (31-73) Lymphocytes (%) (Auto) 18 % (24-48) Monocytes (%) (Auto) 6 % (0-9) Eosinophils (%) (Auto) 1 % (0-3) Basophils (%) (Auto) 0 % (0-3) Neutrophils # (Auto) 8.2 x10^3/uL (1.8-7.7) Lymphocytes # (Auto) 2.0 x10^3/uL (1.0-4.8) Monocytes # (Auto) 0.6 x10^3/uL (0.0-1.1) Eosinophils # (Auto) 0.1 x10^3/uL (0.0-0.7) Basophils # (Auto) 0.0 x10^3/uL (0.0-0.2) Sodium Level 144 mmol/L (136-145) Potassium Level 4.3 mmol/L (3.5-5.1) Chloride Level 112 mmol/L (98-107) Carbon Dioxide Level 21 mmol/L (21-32) Anion Gap 11 (6-14) Blood Urea Nitrogen 50 mg/dL (7-20) Creatinine 3.9 mg/dL (0.6-1.0) Estimated GFR (Cockcroft-Gault) 15.3 Glucose Level 144 mg/dL (70-99) Calcium Level 7.7 mg/dL (8.5-10.1) Phosphorus Level 2.5 mg/dL (2.6-4.7) Magnesium Level 1.5 mg/dL (1.8-2.4) Test 10/15/21 05:47 10/15/21 06:39 10/15/21 07:50 10/15/21 08:25 Glucose (Fingerstick) 127 mg/dL (70-99) 121 mg/dL (70-99) 95 mg/dL (70-99) O2 Saturation 97 % (92-99) Arterial Blood pH 7.34 (7.35-7.45) Arterial Blood pCO2 at Patient Temp 38 mmHg (35-46) Arterial Blood pO2 at Patient Temp 94 mmHg (75-108) Arterial Blood HCO3 20 mmol/L (21-28) Arterial Blood Base Excess -5 mmol/L (-3-3) FiO2 21% Test 10/15/21 08:55 10/15/21 10:02 10/15/21 11:16 Glucose (Fingerstick) 81 mg/dL (70-99) 106 mg/dL (70-99) 112 mg/dL (70-99) Images Images PATIENT: CAT LYNN ACCOUNT: [id number] : 1980 LOCATION: ER AGE: 41 SEX: F EXAM STATUS: PRE ER ORD. PHYSICIAN: AUBRIE PELAYO MD REASON: altered mental status PROCEDURE: CT HEAD WO CONTRAST CT Head W/O Contrast: History: Reason: altered mental status / Spl. Instructions: / History: Comparison: none Axial images were obtained without contrast. The bone and white matter appears normal and symmetrical for the patients age. There is no mass effect, extraaxial fluid collections or hydrocephalus. There is no gross bleed. There is no focal loss of bone-white matter distinction to suggest acute ischemia, i.e. stroke. Impression: No acute findings. PQRS Compliance Statement: One or more of the following individualized dose reduction techniques were utilized for this examination: 1. Automated exposure control 2. Adjustment of the mA and/or kV according to patient size 3. Use of iterative reconstruction technique Electronically signed by: Sharath Rees III, MD (10/14/2021 5:16 PM) [facility] Assessment/Plan Assessment/Plan IMP DKA MET ACIDOSIS RESP ALKALOSIS LEUCOCYTOSIS POSSIBLE SEPSIS HYPOTENSION SEVERE LIFE THREATENING HYPERKALEMIA ACUTE KIDNEY INJURY PROB CKD-UNKNOWN STAGE SEVERE ANEMIA-CHRONIC VS ACUTE BLOOD LOSS URINARY TRACT INFECTION MET ENCEPHALOPATHY PLAN PRBC NEEDED HYDRATION CHECK IRON STORES MAY NEED HALLIE IF SHE HAS CKD ANTIBIOTICS INSULIN DKA PROTOCOL SERIAL LABS PT CRITICALLY ILL WILL FOLLOW CONSUELO GARCIA MD October 15, 2021 11:37
[2021-10-15] MEDS ORDERED: DEXTROSE 50% 25 GM / 50ML DISP.SYRIN. IV PRN (12:00)
--- NOTE | 2021-10-15 13:07 | PDOC ---
[facility] [facility] PROGRESS NOTE Date of Service DOS: DATE: 10/15/21 TIME: 13:04 Chief Complaint Chief Complaint Resolving DKA Sepsis Hemodynamic instability Acute metabolic encephalopathy DKA Severe hyperkalemia with EKG changes Anion gap metabolic acidosis due to above TAMARA due to vasomotor nephropathy Normocytic anemia due to MARISELA versus acute blood loss Severe protein malnutrition Suprapubic Sifuentes Noncompliance History of Present Illness History of Present Illness 10/15/2021 Patient seen and examined She seems very lethargic does not talk Discussed with RN Chart reviewed Her gap is now closed I discussed with pharmacy I am going to start NovoLog 10 units 3 times daily and Lantus 20 at bedtime Vitals/I&O Vitals/I&O: Vital Signs Date Time Temp Pulse Resp B/P (MAP) Pulse Ox O2 Delivery O2 Flow Rate FiO2 10/15/21 06:00 90 18 102/68 (79) 100 Room Air 10/15/21 04:00 97.2 97.2 I & O 10/14/21 10/14/21 10/15/21 15:00 23:00 07:00 Intake Total 3000 ml 2147.93 ml Output Total 510 ml 275 ml Balance 2490 ml 1872.93 ml Physical Exam General: Cooperative, No acute distress Heart: Regular rate Abdomen: Normal bowel sounds, Soft, No tenderness Extremities: No clubbing Skin: No breakdown Labs Labs: Laboratory Tests Test 10/14/21 16:10 10/14/21 18:04 10/14/21 18:30 10/14/21 19:50 White Blood Count 12.0 x10^3/uL (4.0-11.0) Red Blood Count 2.05 x10^6/uL (3.50-5.40) Hemoglobin 5.9 g/dL (12.0-15.5) Hematocrit 20.0 % (36.0-47.0) Mean Corpuscular Volume 97 fL (79-100) Mean Corpuscular Hemoglobin 29 pg (25-35) Mean Corpuscular Hemoglobin Concent 30 g/dL (31-37) Red Cell Distribution Width 17.2 % (11.5-14.5) Platelet Count 335 x10^3/uL (140-400) Neutrophils (%) (Auto) 84 % (31-73) Lymphocytes (%) (Auto) 10 % (24-48) Monocytes (%) (Auto) 6 % (0-9) Eosinophils (%) (Auto) 0 % (0-3) Basophils (%) (Auto) 0 % (0-3) Neutrophils # (Auto) 10.1 x10^3/uL (1.8-7.7) Lymphocytes # (Auto) 1.2 x10^3/uL (1.0-4.8) Monocytes # (Auto) 0.7 x10^3/uL (0.0-1.1) Eosinophils # (Auto) 0.0 x10^3/uL (0.0-0.7) Basophils # (Auto) 0.0 x10^3/uL (0.0-0.2) Prothrombin Time 16.9 SEC (11.7-14.0) Prothromb Time International Ratio 1.4 (0.8-1.1) Activated Partial Thromboplast Time 30 SEC (24-38) Sodium Level 132 mmol/L (136-145) Potassium Level 8.5 mmol/L (3.5-5.1) Chloride Level 93 mmol/L (98-107) Carbon Dioxide Level 6 mmol/L (21-32) Anion Gap 33 (6-14) Blood Urea Nitrogen 62 mg/dL (7-20) Creatinine 4.4 mg/dL (0.6-1.0) Estimated GFR (Cockcroft-Gault) 11.0 BUN/Creatinine Ratio 14 (6-20) Glucose Level 948 mg/dL (70-99) 685 mg/dL (70-99) Lactic Acid Level 3.1 mmol/L (0.4-2.0) Calcium Level 7.9 mg/dL (8.5-10.1) Magnesium Level 2.2 mg/dL (1.8-2.4) Total Bilirubin 0.5 mg/dL (0.2-1.0) Aspartate Amino Transf (AST/SGOT) 25 U/L (15-37) Alanine Aminotransferase (ALT/SGPT) 10 U/L (14-59) Alkaline Phosphatase 128 U/L (46-116) Creatine Kinase 65 U/L (26-192) Troponin I High Sensitivity 11 ng/L (4-50) OB-Nkt-S-Type Natriuretic Peptide 2969 pg/mL (0-124) Total Protein 7.2 g/dL (6.4-8.2) Albumin 1.6 g/dL (3.4-5.0) Albumin/Globulin Ratio 0.3 (1.0-1.7) Lipase 145 U/L (73-393) Procalcitonin 0.58 ng/mL (0.00-0.10) Thyroid Stimulating Hormone (TSH) 0.830 uIU/mL (0.358-3.74) O2 Saturation 97 % (92-99) Arterial Blood pH 7.16 (7.35-7.45) Arterial Blood pCO2 at Patient Temp 15 mmHg (35-46) Arterial Blood pO2 at Patient Temp 131 mmHg (75-108) Arterial Blood HCO3 5 mmol/L (21-28) Arterial Blood Base Excess -21 mmol/L (-3-3) Oxyhemoglobin 96.3 % Methemoglobin 0.8 % (0.0-1.9) Carbon Monoxide, Quantitative 0.3 % (0.0-1.9) FiO2 Room air Urine Collection Type U cath Urine Color (Auto) [place] Urine Turbidity Turbid Urine pH (Auto) 5.5 (<5.0-8.0) Urine Specific [place] 1.013 (1.000-1.030) Urine Protein (Auto) 200 mg/dL (Negative) Urine Glucose (Auto)(UA) >=1000 mg/dL (Negative) Urine Ketones (Auto) 60 mg/dL (Negative) Urine Blood (Auto) Large (Negative) Urine Nitrite Negative (Negative) Urine Bilirubin (Auto) Negative (Negative) Urine Urobilinogen (Auto) Normal mg/dL (Normal) Urine Leukocyte Esterase (Auto) Large (Negative) Urine RBC 11-20 /HPF (0-2) Urine WBC >40 /HPF (0-4) Urine Bacteria Many /HPF (0-FEW) Urine Opiates Screen Pos (NEG) Urine Methadone Screen Neg (NEG) Urine Barbiturates Neg (NEG) Urine Phencyclidine Screen Neg (NEG) Urine Amphetamine/Methamphetamine Neg (NEG) Urine Benzodiazepines Screen Neg (NEG) Urine Cocaine Screen Neg (NEG) Urine Cannabinoids Screen Neg (NEG) Urine Ethyl Alcohol Neg (NEG) Test 10/14/21 20:10 10/14/21 21:10 10/14/21 21:40 10/14/21 22:41 Lactic Acid Level 1.8 mmol/L (0.4-2.0) Sodium Level 140 mmol/L (136-145) Potassium Level 5.0 mmol/L (3.5-5.1) Chloride Level 105 mmol/L (98-107) Carbon Dioxide Level 13 mmol/L (21-32) Anion Gap 22 (6-14) Blood Urea Nitrogen 57 mg/dL (7-20) Creatinine 4.3 mg/dL (0.6-1.0) Estimated GFR (Cockcroft-Gault) 13.7 Glucose Level 562 mg/dL (70-99) Calcium Level 7.8 mg/dL (8.5-10.1) Phosphorus Level 4.2 mg/dL (2.6-4.7) Magnesium Level 1.8 mg/dL (1.8-2.4) Troponin I High Sensitivity 21 ng/L (4-50) Glucose (Fingerstick) 493 mg/dL (70-99) 429 mg/dL (70-99) Test 10/14/21 23:44 10/15/21 00:42 10/15/21 01:20 10/15/21 01:46 Glucose (Fingerstick) 361 mg/dL (70-99) 279 mg/dL (70-99) 206 mg/dL (70-99) Sodium Level 143 mmol/L (136-145) Potassium Level 4.5 mmol/L (3.5-5.1) Chloride Level 110 mmol/L (98-107) Carbon Dioxide Level 18 mmol/L (21-32) Anion Gap 15 (6-14) Blood Urea Nitrogen 53 mg/dL (7-20) Creatinine 4.0 mg/dL (0.6-1.0) Estimated GFR (Cockcroft-Gault) 14.9 Glucose Level 250 mg/dL (70-99) Calcium Level 7.6 mg/dL (8.5-10.1) Phosphorus Level 2.8 mg/dL (2.6-4.7) Magnesium Level 1.6 mg/dL (1.8-2.4) Troponin I High Sensitivity 49 ng/L (4-50) Test 10/15/21 02:46 10/15/21 03:47 10/15/21 04:47 10/15/21 05:00 Glucose (Fingerstick) 194 mg/dL (70-99) 174 mg/dL (70-99) 149 mg/dL (70-99) White Blood Count 11.0 x10^3/uL (4.0-11.0) Red Blood Count 2.67 x10^6/uL (3.50-5.40) Hemoglobin 7.5 g/dL (12.0-15.5) Hematocrit 22.7 % (36.0-47.0) Mean Corpuscular Volume 85 fL (79-100) Mean Corpuscular Hemoglobin 28 pg (25-35) Mean Corpuscular Hemoglobin Concent 33 g/dL (31-37) Red Cell Distribution Width 16.8 % (11.5-14.5) Platelet Count 277 x10^3/uL (140-400) Neutrophils (%) (Auto) 75 % (31-73) Lymphocytes (%) (Auto) 18 % (24-48) Monocytes (%) (Auto) 6 % (0-9) Eosinophils (%) (Auto) 1 % (0-3) Basophils (%) (Auto) 0 % (0-3) Neutrophils # (Auto) 8.2 x10^3/uL (1.8-7.7) Lymphocytes # (Auto) 2.0 x10^3/uL (1.0-4.8) Monocytes # (Auto) 0.6 x10^3/uL (0.0-1.1) Eosinophils # (Auto) 0.1 x10^3/uL (0.0-0.7) Basophils # (Auto) 0.0 x10^3/uL (0.0-0.2) Sodium Level 144 mmol/L (136-145) Potassium Level 4.3 mmol/L (3.5-5.1) Chloride Level 112 mmol/L (98-107) Carbon Dioxide Level 21 mmol/L (21-32) Anion Gap 11 (6-14) Blood Urea Nitrogen 50 mg/dL (7-20) Creatinine 3.9 mg/dL (0.6-1.0) Estimated GFR (Cockcroft-Gault) 15.3 Glucose Level 144 mg/dL (70-99) Calcium Level 7.7 mg/dL (8.5-10.1) Phosphorus Level 2.5 mg/dL (2.6-4.7) Magnesium Level 1.5 mg/dL (1.8-2.4) Test 10/15/21 05:47 10/15/21 06:39 10/15/21 07:50 10/15/21 08:25 Glucose (Fingerstick) 127 mg/dL (70-99) 121 mg/dL (70-99) 95 mg/dL (70-99) O2 Saturation 97 % (92-99) Arterial Blood pH 7.34 (7.35-7.45) Arterial Blood pCO2 at Patient Temp 38 mmHg (35-46) Arterial Blood pO2 at Patient Temp 94 mmHg (75-108) Arterial Blood HCO3 20 mmol/L (21-28) Arterial Blood Base Excess -5 mmol/L (-3-3) FiO2 21% Test 10/15/21 08:55 10/15/21 10:02 10/15/21 11:16 Glucose (Fingerstick) 81 mg/dL (70-99) 106 mg/dL (70-99) 112 mg/dL (70-99) Assessment and Plan Assessmemt and Plan Sepsis Hemodynamic instability Acute metabolic encephalopathy DKA Severe hyperkalemia with EKG changes Anion gap metabolic acidosis due to above TAMARA due to vasomotor nephropathy Normocytic anemia due to MARISELA versus acute blood loss Severe protein malnutrition Suprapubic Sifuentes Noncompliance Plan We are changing her insulin drip to scheduled insulin NovoLog 10 units 3 times daily with meals and Lantus 20 units at bedtime Change IV fluids to normal saline at 75 an hour Continue to monitor labs ICU monitoring Home meds DVT prophylaxis Full code Urology consultation in progress for suprapubic Sifuentes catheter management Comment Review of Relevant I have reviewed the following items devi (where applicable) has been applied. Medications: Current Medications Medications (Trade) Dose Ordered Sig/Miriam Route PRN Reason Start Time Stop Time Status Last Admin Dose Admin Sodium Chloride 1,000 ml @ 1,000 mls/hr Q1H IV 10/14/21 15:30 10/14/21 16:29 DC 10/14/21 16:27 Sodium Chloride 1,000 ml @ 1,000 mls/hr 1X ONCE IV 10/14/21 15:30 10/14/21 16:29 DC 10/14/21 15:25 Insulin Human Regular (HumuLIN R VIAL) 10 unit 1X ONCE IV 10/14/21 16:30 10/14/21 16:31 DC 10/14/21 16:34 Calcium Gluconate (Calcium Gluconate) 1,000 mg 1X ONCE IVP 10/14/21 16:45 10/14/21 16:46 DC 10/14/21 16:34 Insulin Human Regular 100 unit/ Sodium Chloride 101 ml @ 0 mls/hr 1X ONCE IV 10/14/21 18:00 10/15/21 11:58 DC 10/14/21 18:49 Piperacillin Sod/ Tazobactam Sod 2.25 gm/Sodium Chloride 50 ml @ 100 mls/hr 1X ONCE IV 10/14/21 18:00 10/14/21 18:29 DC 10/14/21 19:56 Sodium Chloride 1,000 ml @ 200 mls/hr Q5H IV 10/14/21 17:45 10/15/21 17:44 10/15/21 10:51 Vancomycin HCl 750 mg/Sodium Chloride 250 ml @ 250 mls/hr 1X ONCE IV 10/14/21 19:00 10/14/21 19:59 DC 10/14/21 20:01 Sodium Bicarbonate (Sodium Bicarb Adult 8.4% Syr) 50 meq 1X ONCE IV 10/14/21 20:30 10/14/21 20:31 DC 10/14/21 19:57 Pantoprazole Sodium (PROTONIX VIAL for IV PUSH) 40 mg DAILYAC IVP 10/14/21 20:30 10/15/21 08:47 Piperacillin Sod/ Tazobactam Sod 2.25 gm/Sodium Chloride 50 ml @ 100 mls/hr Q8HRS IV 10/15/21 06:00 10/15/21 05:50 Insulin Human Regular 100 unit/ Sodium Chloride 101 ml @ 12 mls/hr CONT PRN IV PER PROTOCOL 10/15/21 00:00 10/15/21 11:58 DC 10/15/21 00:35 Dextrose/Sodium Chloride 1,000 ml @ 250 mls/hr Q4H IV 10/15/21 02:00 10/15/21 11:58 DC 10/15/21 10:50 Potassium Chloride/Water 100 ml @ 100 mls/hr Q1H IV 10/15/21 06:45 10/15/21 08:44 DC 10/15/21 06:35 Justifications for Admission Other Justification CASTLE,NIAL K III DO October 15, 2021 13:07
[2021-10-15] MEDS: VANCOMYCIN PER PHARMACY MC PRN (13:36)
--- NOTE | 2021-10-15 13:37 | NUR ---
Pharmacy Vancomycin Dosing Note S:Consulted to monitor and dose vancomycin started 10/14/21. O:CAT LYNN is a 41 year old F with UTI sepsis? . Height: 5 feet, 8 inches Weight: 67.4 kg [place] Body Weight: 63.90 Adjusted Body Weight: 65.30 Dosing Weight: Actual Other Antibiotics: ZOSYN LABS: Last BUN: 50 Last Creatinine: 3.9 Creatinine Clearance: 19 mL/min Last WBC: 11 Last Procalcitonin: 0.58 Tmax (past 24 hours): Microbiology: I/O: 5148/785 Drug Levels: Last level: on at Last dose given at Vancomycin Dosing: Loading Dose: 750 mg x1 Dosing Weight: Actual Target Trough: 10-20 A: Based on: HT, WT AND RENAL FXN P: 1. Begin Vancomycin IV Dose Per Levels 2. Follow up Random level on 10/16/21 at 0500 3. Pharmacy will continue to monitor, follow and adjust therapy as needed. SHANTELL MORSE, [facility], 10/15/21 [id number]
[2021-10-15] MEDS: INSULIN LISPRO 300 UNITS/3 ML VIAL. SQ SCH ×3 (13:58→18:18)
--- NOTE | 2021-10-15 17:17 | PDOC ---
PROGRESS NOTE DATE OF SERVICE: DATE: 10/15/21 TIME: 17:14 OBJECTIVE: Vital Signs: Vital Signs Date Time Temp Pulse Resp B/P (MAP) Pulse Ox O2 Delivery O2 Flow Rate FiO2 10/15/21 15:00 96 16 103/67 (79) 100 Room Air 10/15/21 14:00 98 16 100/60 (73) 98 Room Air 10/15/21 13:00 96 18 106/64 (78) 98 Room Air 10/15/21 12:00 97.6 98 16 112/68 (83) 98 Room Air 97.6 10/15/21 11:00 90 16 94/67 (76) 100 Room Air 10/15/21 10:00 90 18 102/70 (81) 94 Room Air 10/15/21 09:00 92 14 110/76 (87) 100 Room Air 10/15/21 08:00 97.2 94 16 131/88 (102) 90 Room Air 97.2 10/15/21 07:00 84 16 77/59 (65) 94 Room Air 10/15/21 06:00 90 18 102/68 (79) 100 Room Air 10/15/21 05:00 91 18 98/71 (80) 100 Room Air 10/15/21 04:00 97.2 93 16 106/73 (84) 100 Room Air 97.2 10/15/21 03:00 89 16 95/63 (74) 100 Room Air 10/15/21 02:58 97.2 89 16 91/65 97.2 10/15/21 02:00 87 16 92/63 (73) 99 Room Air 10/15/21 01:12 91 16 104/65 (78) 100 Room Air 10/15/21 01:12 97.2 91 16 104/65 97.2 10/15/21 00:12 97.5 92 18 96/60 97.5 10/15/21 00:12 97.5 92 18 96/60 (72) 100 Room Air 97.5 10/14/21 23:00 88 18 86/58 (67) 100 Room Air 10/14/21 22:46 96.7 93 18 87/57 96.7 10/14/21 22:00 96.4 95 20 83/59 (67) 99 Room Air 96.4 10/14/21 21:46 96.3 94 20 86/59 96.3 10/14/21 21:00 94 22 87/51 (63) 100 Room Air 10/14/21 20:00 94 26 84/51 (62) 100 Room Air 10/14/21 19:30 94.8 96 28 91/64 (73) 100 Room Air 94.8 10/14/21 18:39 98 12 117/69 (85) 100 Room Air 10/14/21 18:09 95 14 102/64 (77) 100 Room Air 10/14/21 17:39 94 16 97/59 (72) 100 Room Air 10/14/21 17:17 98 13 101/58 (72) 100 Room Air I & O Intake and Output 10/15/21 06:59 Intake Total 5147.93 ml Output Total 785 ml Balance 4362.93 ml Intake IV Total 5065.11 ml Blood Product IV Normal Saline Flush 82.82 ml Output Urine Total 785 ml LABS: Laboratory Tests Test 10/14/21 16:10 10/14/21 18:04 10/14/21 18:30 10/14/21 19:50 White Blood Count 12.0 x10^3/uL (4.0-11.0) Red Blood Count 2.05 x10^6/uL (3.50-5.40) Hemoglobin 5.9 g/dL (12.0-15.5) Hematocrit 20.0 % (36.0-47.0) Mean Corpuscular Volume 97 fL (79-100) Mean Corpuscular Hemoglobin 29 pg (25-35) Mean Corpuscular Hemoglobin Concent 30 g/dL (31-37) Red Cell Distribution Width 17.2 % (11.5-14.5) Platelet Count 335 x10^3/uL (140-400) Neutrophils (%) (Auto) 84 % (31-73) Lymphocytes (%) (Auto) 10 % (24-48) Monocytes (%) (Auto) 6 % (0-9) Eosinophils (%) (Auto) 0 % (0-3) Basophils (%) (Auto) 0 % (0-3) Neutrophils # (Auto) 10.1 x10^3/uL (1.8-7.7) Lymphocytes # (Auto) 1.2 x10^3/uL (1.0-4.8) Monocytes # (Auto) 0.7 x10^3/uL (0.0-1.1) Eosinophils # (Auto) 0.0 x10^3/uL (0.0-0.7) Basophils # (Auto) 0.0 x10^3/uL (0.0-0.2) Prothrombin Time 16.9 SEC (11.7-14.0) Prothromb Time International Ratio 1.4 (0.8-1.1) Activated Partial Thromboplast Time 30 SEC (24-38) Sodium Level 132 mmol/L (136-145) Potassium Level 8.5 mmol/L (3.5-5.1) Chloride Level 93 mmol/L (98-107) Carbon Dioxide Level 6 mmol/L (21-32) Anion Gap 33 (6-14) Blood Urea Nitrogen 62 mg/dL (7-20) Creatinine 4.4 mg/dL (0.6-1.0) Estimated GFR (Cockcroft-Gault) 11.0 BUN/Creatinine Ratio 14 (6-20) Glucose Level 948 mg/dL (70-99) 685 mg/dL (70-99) Lactic Acid Level 3.1 mmol/L (0.4-2.0) Calcium Level 7.9 mg/dL (8.5-10.1) Magnesium Level 2.2 mg/dL (1.8-2.4) Total Bilirubin 0.5 mg/dL (0.2-1.0) Aspartate Amino Transf (AST/SGOT) 25 U/L (15-37) Alanine Aminotransferase (ALT/SGPT) 10 U/L (14-59) Alkaline Phosphatase 128 U/L (46-116) Creatine Kinase 65 U/L (26-192) Troponin I High Sensitivity 11 ng/L (4-50) BA-Mev-G-Type Natriuretic Peptide 2969 pg/mL (0-124) Total Protein 7.2 g/dL (6.4-8.2) Albumin 1.6 g/dL (3.4-5.0) Albumin/Globulin Ratio 0.3 (1.0-1.7) Lipase 145 U/L (73-393) Procalcitonin 0.58 ng/mL (0.00-0.10) Thyroid Stimulating Hormone (TSH) 0.830 uIU/mL (0.358-3.74) O2 Saturation 97 % (92-99) Arterial Blood pH 7.16 (7.35-7.45) Arterial Blood pCO2 at Patient Temp 15 mmHg (35-46) Arterial Blood pO2 at Patient Temp 131 mmHg (75-108) Arterial Blood HCO3 5 mmol/L (21-28) Arterial Blood Base Excess -21 mmol/L (-3-3) Oxyhemoglobin 96.3 % Methemoglobin 0.8 % (0.0-1.9) Carbon Monoxide, Quantitative 0.3 % (0.0-1.9) FiO2 Room air Urine Collection Type U cath Urine Color (Auto) [place] Urine Turbidity Turbid Urine pH (Auto) 5.5 (<5.0-8.0) Urine Specific [employer] 1.013 (1.000-1.030) Urine Protein (Auto) 200 mg/dL (Negative) Urine Glucose (Auto)(UA) >=1000 mg/dL (Negative) Urine Ketones (Auto) 60 mg/dL (Negative) Urine Blood (Auto) Large (Negative) Urine Nitrite Negative (Negative) Urine Bilirubin (Auto) Negative (Negative) Urine Urobilinogen (Auto) Normal mg/dL (Normal) Urine Leukocyte Esterase (Auto) Large (Negative) Urine RBC 11-20 /HPF (0-2) Urine WBC >40 /HPF (0-4) Urine Bacteria Many /HPF (0-FEW) Urine Opiates Screen Pos (NEG) Urine Methadone Screen Neg (NEG) Urine Barbiturates Neg (NEG) Urine Phencyclidine Screen Neg (NEG) Urine Amphetamine/Methamphetamine Neg (NEG) Urine Benzodiazepines Screen Neg (NEG) Urine Cocaine Screen Neg (NEG) Urine Cannabinoids Screen Neg (NEG) Urine Ethyl Alcohol Neg (NEG) Test 10/14/21 20:10 10/14/21 21:10 10/14/21 21:40 10/14/21 22:41 Lactic Acid Level 1.8 mmol/L (0.4-2.0) Sodium Level 140 mmol/L (136-145) Potassium Level 5.0 mmol/L (3.5-5.1) Chloride Level 105 mmol/L (98-107) Carbon Dioxide Level 13 mmol/L (21-32) Anion Gap 22 (6-14) Blood Urea Nitrogen 57 mg/dL (7-20) Creatinine 4.3 mg/dL (0.6-1.0) Estimated GFR (Cockcroft-Gault) 13.7 Glucose Level 562 mg/dL (70-99) Calcium Level 7.8 mg/dL (8.5-10.1) Phosphorus Level 4.2 mg/dL (2.6-4.7) Magnesium Level 1.8 mg/dL (1.8-2.4) Troponin I High Sensitivity 21 ng/L (4-50) Glucose (Fingerstick) 493 mg/dL (70-99) 429 mg/dL (70-99) Test 10/14/21 23:44 10/15/21 00:42 10/15/21 01:20 10/15/21 01:46 Glucose (Fingerstick) 361 mg/dL (70-99) 279 mg/dL (70-99) 206 mg/dL (70-99) Sodium Level 143 mmol/L (136-145) Potassium Level 4.5 mmol/L (3.5-5.1) Chloride Level 110 mmol/L (98-107) Carbon Dioxide Level 18 mmol/L (21-32) Anion Gap 15 (6-14) Blood Urea Nitrogen 53 mg/dL (7-20) Creatinine 4.0 mg/dL (0.6-1.0) Estimated GFR (Cockcroft-Gault) 14.9 Glucose Level 250 mg/dL (70-99) Calcium Level 7.6 mg/dL (8.5-10.1) Phosphorus Level 2.8 mg/dL (2.6-4.7) Magnesium Level 1.6 mg/dL (1.8-2.4) Troponin I High Sensitivity 49 ng/L (4-50) Test 10/15/21 02:46 10/15/21 03:47 10/15/21 04:47 10/15/21 05:00 Glucose (Fingerstick) 194 mg/dL (70-99) 174 mg/dL (70-99) 149 mg/dL (70-99) White Blood Count 11.0 x10^3/uL (4.0-11.0) Red Blood Count 2.67 x10^6/uL (3.50-5.40) Hemoglobin 7.5 g/dL (12.0-15.5) Hematocrit 22.7 % (36.0-47.0) Mean Corpuscular Volume 85 fL (79-100) Mean Corpuscular Hemoglobin 28 pg (25-35) Mean Corpuscular Hemoglobin Concent 33 g/dL (31-37) Red Cell Distribution Width 16.8 % (11.5-14.5) Platelet Count 277 x10^3/uL (140-400) Neutrophils (%) (Auto) 75 % (31-73) Lymphocytes (%) (Auto) 18 % (24-48) Monocytes (%) (Auto) 6 % (0-9) Eosinophils (%) (Auto) 1 % (0-3) Basophils (%) (Auto) 0 % (0-3) Neutrophils # (Auto) 8.2 x10^3/uL (1.8-7.7) Lymphocytes # (Auto) 2.0 x10^3/uL (1.0-4.8) Monocytes # (Auto) 0.6 x10^3/uL (0.0-1.1) Eosinophils # (Auto) 0.1 x10^3/uL (0.0-0.7) Basophils # (Auto) 0.0 x10^3/uL (0.0-0.2) Sodium Level 144 mmol/L (136-145) Potassium Level 4.3 mmol/L (3.5-5.1) Chloride Level 112 mmol/L (98-107) Carbon Dioxide Level 21 mmol/L (21-32) Anion Gap 11 (6-14) Blood Urea Nitrogen 50 mg/dL (7-20) Creatinine 3.9 mg/dL (0.6-1.0) Estimated GFR (Cockcroft-Gault) 15.3 Glucose Level 144 mg/dL (70-99) Calcium Level 7.7 mg/dL (8.5-10.1) Phosphorus Level 2.5 mg/dL (2.6-4.7) Magnesium Level 1.5 mg/dL (1.8-2.4) Test 10/15/21 05:47 10/15/21 06:39 10/15/21 07:50 10/15/21 08:25 Glucose (Fingerstick) 127 mg/dL (70-99) 121 mg/dL (70-99) 95 mg/dL (70-99) O2 Saturation 97 % (92-99) Arterial Blood pH 7.34 (7.35-7.45) Arterial Blood pCO2 at Patient Temp 38 mmHg (35-46) Arterial Blood pO2 at Patient Temp 94 mmHg (75-108) Arterial Blood HCO3 20 mmol/L (21-28) Arterial Blood Base Excess -5 mmol/L (-3-3) FiO2 21% Test 10/15/21 08:55 10/15/21 10:02 10/15/21 11:16 10/15/21 13:57 Glucose (Fingerstick) 81 mg/dL (70-99) 106 mg/dL (70-99) 112 mg/dL (70-99) 173 mg/dL (70-99) Microbiology 10/14/21 Blood Culture - Preliminary, Resulted NO GROWTH AFTER 1 DAY MEDICATIONS: Current Medications Medications (Trade) Dose Ordered Sig/Miriam Start Time Stop Time Status Last Admin Dose Admin Acetaminophen (Tylenol) 650 mg PRN Q4HRS PRN 10/14/21 17:45 Acetaminophen/ Hydrocodone Bitart (Lortab 5/325) 1 tab PRN Q4HRS PRN 10/14/21 17:45 Calcium Gluconate (Calcium Gluconate) 1,000 mg 1X ONCE 10/14/21 16:45 10/14/21 16:46 DC 10/14/21 16:34 1,000 MG Dextrose (Dextrose 50%-Water Syringe) 12.5 gm PRN Q15MIN PRN 10/15/21 12:00 Dextrose/Sodium Chloride 1,000 ml @ 250 mls/hr Q4H 10/15/21 02:00 10/15/21 11:58 DC 10/15/21 10:50 250 MLS/HR Diphenhydramine HCl (Benadryl) 25 mg PRN QHS PRN 10/14/21 17:45 Docusate Sodium (Colace) 100 mg PRN DAILY PRN 10/14/21 17:45 Heparin Sodium (Porcine) (Heparin Sodium) 5,000 unit Q12HR 10/14/21 21:00 Insulin Glargine (Lantus Syringe) 20 unit QHS 10/15/21 21:00 Insulin Human Lispro (HumaLOG) 10 units TIDAC 10/15/21 16:30 Insulin Human Regular (HumuLIN R VIAL) 10 unit 1X ONCE 10/14/21 17:45 10/15/21 11:58 DC Insulin Human Regular 100 unit/ Sodium Chloride 101 ml @ 12 mls/hr CONT PRN 10/15/21 00:00 10/15/21 11:58 DC 10/15/21 00:35 12.12 MLS/HR Lorazepam (Ativan Inj) 0.25 mg PRN Q4HRS PRN 10/14/21 17:45 Lorazepam (Ativan) 0.5 mg PRN Q6HRS PRN 10/14/21 17:45 Morphine Sulfate (Morphine Sulfate) 2 mg PRN Q2HR PRN 10/14/21 17:45 10/15/21 17:44 Ondansetron HCl (Zofran) 4 mg PRN Q6HRS PRN 10/14/21 17:45 Pantoprazole Sodium (PROTONIX VIAL for IV PUSH) 40 mg DAILYAC 10/14/21 20:30 10/15/21 08:47 40 MG Piperacillin Sod/ Tazobactam Sod (Zosyn Per Pharmacy) 1 each PRN DAILY PRN 10/14/21 17:45 Piperacillin Sod/ Tazobactam Sod 2.25 gm/Sodium Chloride 50 ml @ 100 mls/hr Q8HRS 10/15/21 06:00 10/15/21 14:27 100 MLS/HR Piperacillin Sod/ Tazobactam Sod 3.375 gm/Sodium Chloride 50 ml @ 100 mls/hr 1X ONCE 10/14/21 17:30 10/14/21 17:29 DC Potassium Chloride/Water 100 ml @ 100 mls/hr Q1H 10/15/21 06:45 10/15/21 08:44 DC 10/15/21 06:35 100 MLS/HR Prochlorperazine Edisylate (Compazine) 10 mg PRN Q6HRS PRN 10/14/21 17:45 Sennosides (Senna) 17.2 mg PRN BID PRN 10/14/21 17:45 Sodium Bicarbonate (Sodium Bicarb Adult 8.4% Syr) 50 meq STK-MED ONCE 10/14/21 19:54 10/14/21 19:55 DC Sodium Chloride 1,000 ml @ 75 mls/hr [id number] 10/14/21 17:45 10/15/21 17:44 10/15/21 16:40 75 MLS/HR Vancomycin HCl (Vanco Per Pharmacy) 1 each PRN DAILY PRN 10/14/21 17:45 10/15/21 13:36 1 EACH Vancomycin HCl (Vancomycin Random Level) 1 each 1X ONCE 10/16/21 06:00 10/16/21 06:01 Vancomycin HCl 750 mg/Sodium Chloride 250 ml @ 250 mls/hr 1X ONCE 10/14/21 19:00 10/14/21 19:59 DC 10/14/21 20:01 250 MLS/HR Zolpidem Tartrate (Ambien) 2.5 mg PRN QHS PRN 10/14/21 17:45 ASSESSMENT & PLAN Urology consulted for suprapubic tube management. Unable to get any history from patient. SPT appears not well taken care of. Split gauze around it has not been changed in a considerable amount of time. Thick yellow/white drainage surrounding catheter. Urine is thick and white. I deflated 10ml out of catheter balloon and removed current SPT. I prepped patient in sterile fashion and inserted 18fr catheter into suprapubic site. Cloudy yellow urine returned. 10ml inflated into catheter balloon. Statlock placed on patient leg. Patient needs suprapubic changed q3-4 weeks. If patient does not have urologist, patient can followup in our office to have this done or can have a home health nurse do this. Please call with any other urological needs. BARBARA LANZA SHREDDING MACHINE OPERATOR October 15, 2021 17:17
[2021-10-15] MEDS: MORPHINE SULFATE 2 MG/ML INJ. IV PRN (18:15)
[2021-10-15] MEDS: HYDROcodone/APAP 5/325MG 1 TAB TABLET PO PRN (19:43)
[2021-10-15] MEDS: INSULIN GLARGINE SYRINGE. SQ SCH (20:51)
[2021-10-16] VITALS (12 sets, daily range): BP systolic 123–160; BP diastolic 85–110
[2021-10-16] MEDS: MORPHINE SULFATE 2 MG/ML INJ. IV PRN (01:28)
[2021-10-16] MEDS: HYDROcodone/APAP 5/325MG 1 TAB TABLET PO PRN ×2 (02:45→09:39)
[2021-10-16] MEDS ORDERED: VANCOMYCIN RANDOM LEVEL. MC ONE (06:00)
[2021-10-16] MEDS: PIPERACILLIN/TAZOBACTAM 2.25 GM in IV NORMAL SALINE 50ML 50 ML IV SCH ×3 (06:01→22:27)
[2021-10-16 06:23] LABS: BASO % 0 % (0-3); EOS # 0.1 x10^3/uL (0.0-0.7); EOS % 1 % (0-3); HEMATOCRIT 26.5 % (36.0-47.0); HEMOGLOBIN 8.6 g/dL (12.0-15.5); LYMPH # 2.1 x10^3/uL (1.0-4.8); LYMPH % 21 % (24-48); MEAN CORPUSCULAR HEMOGLOBIN 28 pg (25-35); MEAN CORPUSCULAR HGB CONC 33 g/dL (31-37); MEAN CORPUSCULAR VOLUME 85 fL (79-100); MONO # 0.6 x10^3/uL (0.0-1.1); MONO % 6 % (0-9); NEUT # 7.1 x10^3/uL (1.8-7.7); NEUT % 71 % (31-73); PLATELET COUNT 300 x10^3/uL (140-400); RED CELL DISTRIBUTION WIDTH 17.7 % (11.5-14.5)
[2021-10-16 06:27] LABS: CALCIUM 7.4 mg/dL (8.5-10.1); CREATININE 3.1 mg/dL (0.6-1.0); GFR 19.9; MAGNESIUM 1.3 mg/dL (1.8-2.4); POTASSIUM 4.9 mmol/L (3.5-5.1)
[2021-10-16] MEDS: PANTOPRAZOLE IV PUSH 40 MG VIAL. IVP SCH (07:36)
[2021-10-16] MEDS: INSULIN LISPRO 300 UNITS/3 ML VIAL. SQ SCH ×6 (07:39→17:15)
[2021-10-16] MEDS ORDERED: VANCOMYCIN 1 GM in IV NORMAL SALINE 250ML 250 ML IV SCH (08:00)
[2021-10-16] MEDS: VANCOMYCIN PER PHARMACY MC PRN (08:01)
[2021-10-16] MEDS ORDERED: PHENOL ORAL SPRAY 177ML BOTTLE. PO PRN (09:00)
[2021-10-16] MEDS ORDERED: ZOLPIDEM 5 MG TABLET. PO PRN (09:00)
[2021-10-16] MEDS: HEPARIN for SUB-Q USE 5,000 UNIT/ML VIAL. SQ SCH ×2 (09:10→21:00)
--- NOTE | 2021-10-16 10:43 | PDOC ---
Renal-Progress Notes Subjective Notes Notes NO COMPLAINTS History of Present Illness Hx of present illness FEELING BETTER, STILL SOME CONFUSION Vitals Vitals Vital Signs Date Time Temp Pulse Resp B/P (MAP) Pulse Ox O2 Delivery O2 Flow Rate FiO2 10/16/21 08:00 96 16 154/97 (116) Room Air 10/16/21 07:00 97.2 98 97.2 Weight Weight [ ] I.O. Intake and Output Intake and Output 10/16/21 07:00 Output Total 1185 ml Balance -1185 ml Output Urine Total 1185 ml Labs Labs Laboratory Tests Test 10/15/21 11:16 10/15/21 13:57 10/15/21 17:57 10/15/21 20:50 Glucose (Fingerstick) 112 mg/dL (70-99) 173 mg/dL (70-99) 331 mg/dL (70-99) 261 mg/dL (70-99) Test 10/16/21 00:06 10/16/21 05:59 10/16/21 06:00 Glucose (Fingerstick) 229 mg/dL (70-99) 296 mg/dL (70-99) White Blood Count 10.0 x10^3/uL (4.0-11.0) Red Blood Count 3.10 x10^6/uL (3.50-5.40) Hemoglobin 8.6 g/dL (12.0-15.5) Hematocrit 26.5 % (36.0-47.0) Mean Corpuscular Volume 85 fL (79-100) Mean Corpuscular Hemoglobin 28 pg (25-35) Mean Corpuscular Hemoglobin Concent 33 g/dL (31-37) Red Cell Distribution Width 17.7 % (11.5-14.5) Platelet Count 300 x10^3/uL (140-400) Neutrophils (%) (Auto) 71 % (31-73) Lymphocytes (%) (Auto) 21 % (24-48) Monocytes (%) (Auto) 6 % (0-9) Eosinophils (%) (Auto) 1 % (0-3) Basophils (%) (Auto) 0 % (0-3) Neutrophils # (Auto) 7.1 x10^3/uL (1.8-7.7) Lymphocytes # (Auto) 2.1 x10^3/uL (1.0-4.8) Monocytes # (Auto) 0.6 x10^3/uL (0.0-1.1) Eosinophils # (Auto) 0.1 x10^3/uL (0.0-0.7) Basophils # (Auto) 0.0 x10^3/uL (0.0-0.2) Sodium Level 136 mmol/L (136-145) Potassium Level 4.9 mmol/L (3.5-5.1) Chloride Level 109 mmol/L (98-107) Carbon Dioxide Level 21 mmol/L (21-32) Anion Gap 6 (6-14) Blood Urea Nitrogen 37 mg/dL (7-20) Creatinine 3.1 mg/dL (0.6-1.0) Estimated GFR (Cockcroft-Gault) 19.9 Glucose Level 316 mg/dL (70-99) Calcium Level 7.4 mg/dL (8.5-10.1) Magnesium Level 1.3 mg/dL (1.8-2.4) Iron Level 43 ug/dL (50-170) Total Iron Binding Capacity 86 ug/dL (250-450) Iron Saturation 50 % (15-34) Random Vancomycin Level 9.3 mcg/mL Micro Micro Microbiology 10/14/21 Urine Culture - Final, Complete 10/14/21 Blood Culture - Preliminary, Resulted NO GROWTH AFTER 1 DAY Review of Systems Constitutional: yes: other (UNRELIABLE) Physical Exam General Appearance: no apparent distress Skin: warm Respiratory: bilateral CTA Heart: S1S2 Abdomen: soft, bowel sounds present Genitourinary: bladder flat, other (SPC CATHETER) Assessment Assessment IMP DKA MET ACIDOSIS-BETTER RESP ALKALOSIS-RESOLVED LEUCOCYTOSIS POSSIBLE SEPSIS HYPOTENSION SEVERE LIFE THREATENING HYPERKALEMIA ACUTE KIDNEY INJURY PROB CKD-UNKNOWN STAGE-SEES DR NAVARRETE AT [facility] SEVERE ANEMIA-CHRONIC VS ACUTE BLOOD LOSS URINARY TRACT INFECTION-SPC SINCE JUNE PER TP MET ENCEPHALOPATHY-RESOLVING PLAN HYDRATION SPC CHANGED ANTIBIOTICS PROB HAS CKD LABS IN AM WILL FOLLOW CONSUELO GARCIA MD October 16, 2021 10:43
[2021-10-16] MEDS ORDERED: MAGNESIUM SULFATE 2GM 50 ML IV ONE (10:45)
--- NOTE | 2021-10-16 11:13 | PDOC ---
[employer] PROGRESS NOTE Date of Service DOS: DATE: 10/16/21 TIME: 11:12 Chief Complaint Chief Complaint Resolving DKA Sepsis Hemodynamic instability Acute metabolic encephalopathy DKA Severe hyperkalemia with EKG changes Anion gap metabolic acidosis due to above TAMARA due to vasomotor nephropathy Normocytic anemia due to MARISELA versus acute blood loss Severe protein malnutrition Suprapubic Sifuentes Noncompliance History of Present Illness History of Present Illness 10/16/2021 Patient seen and examined Discussed with RN Discussed with case management Chart reviewed Her anion gap is closed Will transfer out of ICU later today on scheduled insulin 10/15/2021 Patient seen and examined She seems very lethargic does not talk Discussed with RN Chart reviewed Her gap is now closed I discussed with pharmacy I am going to start NovoLog 10 units 3 times daily and Lantus 20 at bedtime Vitals/I&O Vitals/I&O: Vital Signs Date Time Temp Pulse Resp B/P (MAP) Pulse Ox O2 Delivery O2 Flow Rate FiO2 10/16/21 08:00 96 16 154/97 (116) Room Air 10/16/21 07:00 97.2 98 97.2 I & O 10/15/21 10/15/21 10/16/21 15:00 23:00 07:00 Output Total 360 ml 300 ml 525 ml Balance -360 ml -300 ml -525 ml Physical Exam General: Cooperative, No acute distress Heart: Regular rate Abdomen: Normal bowel sounds, Soft, No tenderness Extremities: No clubbing Skin: No breakdown Labs Labs: Laboratory Tests Test 10/15/21 11:16 10/15/21 13:57 10/15/21 17:57 10/15/21 20:50 Glucose (Fingerstick) 112 mg/dL (70-99) 173 mg/dL (70-99) 331 mg/dL (70-99) 261 mg/dL (70-99) Test 10/16/21 00:06 10/16/21 05:59 10/16/21 06:00 Glucose (Fingerstick) 229 mg/dL (70-99) 296 mg/dL (70-99) White Blood Count 10.0 x10^3/uL (4.0-11.0) Red Blood Count 3.10 x10^6/uL (3.50-5.40) Hemoglobin 8.6 g/dL (12.0-15.5) Hematocrit 26.5 % (36.0-47.0) Mean Corpuscular Volume 85 fL (79-100) Mean Corpuscular Hemoglobin 28 pg (25-35) Mean Corpuscular Hemoglobin Concent 33 g/dL (31-37) Red Cell Distribution Width 17.7 % (11.5-14.5) Platelet Count 300 x10^3/uL (140-400) Neutrophils (%) (Auto) 71 % (31-73) Lymphocytes (%) (Auto) 21 % (24-48) Monocytes (%) (Auto) 6 % (0-9) Eosinophils (%) (Auto) 1 % (0-3) Basophils (%) (Auto) 0 % (0-3) Neutrophils # (Auto) 7.1 x10^3/uL (1.8-7.7) Lymphocytes # (Auto) 2.1 x10^3/uL (1.0-4.8) Monocytes # (Auto) 0.6 x10^3/uL (0.0-1.1) Eosinophils # (Auto) 0.1 x10^3/uL (0.0-0.7) Basophils # (Auto) 0.0 x10^3/uL (0.0-0.2) Sodium Level 136 mmol/L (136-145) Potassium Level 4.9 mmol/L (3.5-5.1) Chloride Level 109 mmol/L (98-107) Carbon Dioxide Level 21 mmol/L (21-32) Anion Gap 6 (6-14) Blood Urea Nitrogen 37 mg/dL (7-20) Creatinine 3.1 mg/dL (0.6-1.0) Estimated GFR (Cockcroft-Gault) 19.9 Glucose Level 316 mg/dL (70-99) Calcium Level 7.4 mg/dL (8.5-10.1) Magnesium Level 1.3 mg/dL (1.8-2.4) Iron Level 43 ug/dL (50-170) Total Iron Binding Capacity 86 ug/dL (250-450) Iron Saturation 50 % (15-34) Random Vancomycin Level 9.3 mcg/mL Assessment and Plan Assessmemt and Plan Sepsis Hemodynamic instability Acute metabolic encephalopathy DKA Severe hyperkalemia with EKG changes Anion gap metabolic acidosis due to above TAMARA due to vasomotor nephropathy Normocytic anemia due to MARISELA versus acute blood loss Severe protein malnutrition Suprapubic Sifuentes Noncompliance Plan Transfer out of ICU NovoLog 10 units 3 times daily with meals and Lantus 20 units at bedtime Change IV fluids to normal saline at 75 an hour Continue to monitor labs ICU monitoring Home meds DVT prophylaxis Full code Urology consultation in progress for suprapubic Sifuentes catheter management Hope to discharge tomorrow if stable Comment Review of Relevant I have reviewed the following items devi (where applicable) has been applied. Medications: Current Medications Medications (Trade) Dose Ordered Sig/Miriam Route PRN Reason Start Time Stop Time Status Last Admin Dose Admin Insulin Human Lispro (HumaLOG) 0-7 UNITS TIDWMEALS SQ 10/15/21 12:00 10/15/21 18:18 Insulin Human Lispro (HumaLOG) 10 units TIDAC SQ 10/15/21 16:30 10/16/21 07:39 Insulin Glargine (Lantus Syringe) 20 unit QHS SQ 10/15/21 21:00 10/15/21 20:51 Vancomycin HCl (Vancomycin Random Level) 1 each 1X ONCE MC 10/16/21 06:00 10/16/21 06:01 DC 10/16/21 06:00 Vancomycin HCl 1 gm/Sodium Chloride 250 ml @ 250 mls/hr Q36H IV 10/16/21 08:00 10/16/21 10:58 DC 10/16/21 08:17 Phenol (Chloraseptic) 1 spray PRN Q2HR PRN PO SORE THROAT 10/16/21 09:00 10/16/21 09:10 Magnesium Sulfate 50 ml @ 25 mls/hr 1X ONCE IV 10/16/21 10:45 10/16/21 12:44 10/16/21 10:54 Justifications for Admission Other Justification RAINE CHACON III DO October 16, 2021 11:13
[2021-10-16] MEDS: IV NORMAL SALINE 1000ML BAG 1,000 ML IV SCH ×2 (12:32→21:01)
[2021-10-16] MEDS: MULTIVITAMIN I-VITE TABLET. PO SCH (14:02)
[2021-10-16] MEDS ORDERED: HYDROcodone/APAP 7.5/325MG 1 TAB TABLET PO PRN (15:00)
[2021-10-16] MEDS ORDERED: HYOSCYAMINE 0.125 MG TAB.RAPDIS PO PRN (15:30)
[2021-10-16] MEDS ORDERED: HYOSCYAMINE 0.125 MG TAB.RAPDIS PO SCH (16:00)
[2021-10-16] MEDS: INSULIN GLARGINE SYRINGE. SQ SCH (20:59)
[2021-10-17] MEDS: PIPERACILLIN/TAZOBACTAM 2.25 GM in IV NORMAL SALINE 50ML 50 ML IV SCH (05:33)
[2021-10-17] MEDS: IV NORMAL SALINE 1000ML BAG 1,000 ML IV SCH (06:45)
[2021-10-17 07:00] VITALS: BP 139/93
--- NOTE | 2021-10-17 07:45 | RAD ---
EXAMINATION: CT abdomen and pelvis without IV contrast. INDICATION:41 years, Female, acute kidney injury and bladder infection. TECHNIQUE: Axial CT images of the abdomen and pelvis were obtained. Coronal and sagittal reformatted performed. COMPARISON: None. Exposure: One or more of the following individualized dose reduction techniques were utilized for thi s examination: 1. Automated exposure control 2. Adjustment of the mA and/or kV according to patient size 3. Use of iterative reconstruction technique. FINDINGS: LOWER CHEST: Unremarkable. ABDOMEN/PELVIS: Within the limitation of noncontrast exam, Mild left hydroureteronephrosis without obstructing ureteral calculus. Diffuse urothelial thickening of the left ureter and periureteric fat stranding. No right hydronephrosis. No nephrolithiasis in eit her kidney. Decompressed urinary bladder with suprapubic catheter in place. Diffuse urinary bladder w all thickening. Trace amount of perivesical fat stranding. Liver, gallbladder, spleen, pancreas, biliary ducts and glands are unremarkable. No bowel obstruction . Normal appendix. Normal caliber abdominal aorta. No pneumoperitoneum or ascites. No lymphadenopathy . Uterus is not visualized cyst in the. MUSCULOSKELETAL STRUCTURES: No acute osseous process or suspicious lesion. Small fat-containing umbilical hernia. Mild diffuse an asarca. IMPRESSION: Mild left hydronephrosis without obstructing ureteral calculus. Diffuse urothelial thickening of the left ureter with periureteric fat stranding. Despite decompressed urinary bladder with suprapubic cat heter in place, there is a diffuse bladder wall thickening with adjacent fat stranding. Findings sugg esting of left ureteritis and cystitis. Correlate with urinalysis. Electronically signed by: Kory Valverde MD (10/16/2021 10:50 AM) [id number]
--- NOTE | 2021-10-17 07:47 | CONS ---
DATE OF CONSULTATION: 10/16/2021 REQUESTING PHYSICIAN: Thad Marcos DO REASON FOR CONSULTATION: Sepsis and UTI. HISTORY OF PRESENT ILLNESS: This is a 41-year-old -[place] female who has multiple medical problems who came in, apparently was found unresponsive. The patient does not remember what happened or why she is here. The patient says she is feeling much better right now. Denies any nausea, vomiting, diarrhea, chest pain, shortness of breath, abdominal pain. Normally, she goes to . She also has a right calcaneal wound and is doctored by the Wound Care and multiple other areas of superficial skin breakdown. The patient is being treated for UTI, currently as well as renal insufficiency. She did have lactic acidosis as well as DKA. PAST MEDICAL HISTORY: Positive for diabetes mellitus, hypertension, suprapubic catheter, neuropathy, renal insufficiency, multiple toe and finger amputations done for infection she says. SOCIAL HISTORY: Negative for smoking, alcohol, drug use. ALLERGIES: ALLERGIC TO LEVAQUIN CAUSES NAUSEA, VOMITING. CURRENT MEDICATIONS: The patient is on Zosyn and vancomycin. PHYSICAL EXAMINATION: GENERAL: Awake female, not in distress. VITAL SIGNS: Temperature 97.2, pulse 85, respirations 18, blood pressure 154/97. HEENT: Both pupils are round and reacting. No conjunctival lesion, no lesion in the mouth. NECK: Supple, no JVP, no lymphadenopathy. LUNGS: Clear. HEART: S1, S2, regular. ABDOMEN: Soft, nontender, no organomegaly. EXTREMITIES: Right third digit is amputated, left TMA in the leg. Right calcaneal wound has a superficial healthy red granulation tissue with ulcer. There is some minor ulcer on the left middle finger. SKIN: Rest of the skin exam is unremarkable. NEUROLOGIC: The patient is alert, awake, and appropriate, able to communicate and moves all the extremities. No focal deficit. LABORATORY DATA: White count is 10,000, down from 12,000. BUN and creatinine is 37 and 3.1. Baseline creatinine is unknown. Her glucose was 948. Lactic acid was 3.1, anion gap was 33 with the bicarbonate was 6, which has improved now. Urinalysis showed 11-20 RBC more than 40 WBC. Urine culture is positive with multiple organisms. Blood culture is negative. IMPRESSION: 1. Diabetic ketoacidosis. 2. Lactic acidosis. 3. Catheter associated urinary tract infection. 4. Encephalopathy. 5. Renal insufficiency. 6. Multiple wounds including superficial wound on the right calcaneum. 7. Diabetes. 8. Hypertension. RECOMMENDATIONS: Recommend discontinue vancomycin and Zosyn can be switched over to the oral Augmentin soon. Supportive care and we will continue to follow. Thank you very much, Dr. Marcos, for giving me opportunity to participate in this patient's care. KARISHMA/FRANCISCO JAVIER DR: Alvarez TID: [id number]
[2021-10-17 07:52] LABS: BASO # 0.1 x10^3/uL (0.0-0.2); BASO % 1 % (0-3); EOS # 0.3 x10^3/uL (0.0-0.7); EOS % 4 % (0-3); HEMATOCRIT 26.2 % (36.0-47.0); HEMOGLOBIN 8.6 g/dL (12.0-15.5); LYMPH % 31 % (24-48); MEAN CORPUSCULAR HEMOGLOBIN 28 pg (25-35); MEAN CORPUSCULAR HGB CONC 33 g/dL (31-37); MEAN CORPUSCULAR VOLUME 85 fL (79-100); MONO # 0.4 x10^3/uL (0.0-1.1); MONO % 6 % (0-9); NEUT # 3.7 x10^3/uL (1.8-7.7); NEUT % 57 % (31-73); PLATELET COUNT 260 x10^3/uL (140-400); RED BLOOD COUNT 3.08 x10^6/uL (3.50-5.40); WHITE BLOOD COUNT 6.4 x10^3/uL (4.0-11.0)
[2021-10-17] MEDS: INSULIN LISPRO 300 UNITS/3 ML VIAL. SQ SCH ×2 (08:00→08:11)
[2021-10-17] MEDS ORDERED: PANTOPRAZOLE 40 MG TABLET.DR. PO SCH (08:00)
[2021-10-17 08:05] LABS: CALCIUM 7.6 mg/dL (8.5-10.1); CREATININE 2.2 mg/dL (0.6-1.0); GFR 29.6; MAGNESIUM 1.8 mg/dL (1.8-2.4); POTASSIUM 4.6 mmol/L (3.5-5.1)
[2021-10-17 08:06] VITALS: BP 120/79
[2021-10-17] MEDS: MULTIVITAMIN I-VITE TABLET. PO SCH (08:06)
[2021-10-17] MEDS: HEPARIN for SUB-Q USE 5,000 UNIT/ML VIAL. SQ SCH (08:10)
[2021-10-17] MEDS ORDERED: DULoxetine HCL 30 MG CAPSULE.DR PO SCH (09:00)
[2021-10-17] MEDS ORDERED: ATORVASTATIN CALCIUM 40 MG TABLET. PO SCH (09:00)
[2021-10-17] MEDS ORDERED: FLUCONAZOLE 100 MG TABLET. PO SCH (09:00)
[2021-10-17] MEDS ORDERED: FERROUS SULFATE 325 MG TABLET. PO SCH (09:00)
[2021-10-17] MEDS ORDERED: MIDODRINE 2.5 MG TABLET PO SCH (09:00)
[2021-10-17] MEDS ORDERED: GABAPENTIN 300 MG CAPSULE. PO SCH (09:00)
[2021-10-17] MEDS ORDERED: INSU100V6 SQ (10:44)
--- NOTE | 2021-10-17 10:58 | PDOC ---
Renal-Progress Notes Subjective Notes Notes NO NEW COMPLAINTS History of Present Illness Hx of present illness STABLE Vitals Vitals Vital Signs Date Time Temp Pulse Resp B/P (MAP) Pulse Ox O2 Delivery O2 Flow Rate FiO2 10/17/21 08:06 98 120/79 10/17/21 07:00 97.4 18 99 Room Air 97.4 Weight Weight [ ] I.O. Intake and Output Intake and Output 10/17/21 07:00 Intake Total 2400 ml Output Total 3600 ml Balance -1200 ml Intake Oral 2100 ml IV Total 300 ml Output Urine Total 3450 ml Emesis 150 ml Labs Labs Laboratory Tests Test 10/16/21 11:34 10/17/21 06:00 10/17/21 09:17 10/17/21 09:38 Glucose (Fingerstick) 140 mg/dL (70-99) 88 mg/dL (70-99) 32 mg/dL (70-99) White Blood Count 6.4 x10^3/uL (4.0-11.0) Red Blood Count 3.08 x10^6/uL (3.50-5.40) Hemoglobin 8.6 g/dL (12.0-15.5) Hematocrit 26.2 % (36.0-47.0) Mean Corpuscular Volume 85 fL (79-100) Mean Corpuscular Hemoglobin 28 pg (25-35) Mean Corpuscular Hemoglobin Concent 33 g/dL (31-37) Red Cell Distribution Width 17.0 % (11.5-14.5) Platelet Count 260 x10^3/uL (140-400) Neutrophils (%) (Auto) 57 % (31-73) Lymphocytes (%) (Auto) 31 % (24-48) Monocytes (%) (Auto) 6 % (0-9) Eosinophils (%) (Auto) 4 % (0-3) Basophils (%) (Auto) 1 % (0-3) Neutrophils # (Auto) 3.7 x10^3/uL (1.8-7.7) Lymphocytes # (Auto) 2.0 x10^3/uL (1.0-4.8) Monocytes # (Auto) 0.4 x10^3/uL (0.0-1.1) Eosinophils # (Auto) 0.3 x10^3/uL (0.0-0.7) Basophils # (Auto) 0.1 x10^3/uL (0.0-0.2) Sodium Level 143 mmol/L (136-145) Potassium Level 4.6 mmol/L (3.5-5.1) Chloride Level 112 mmol/L (98-107) Carbon Dioxide Level 22 mmol/L (21-32) Anion Gap 9 (6-14) Blood Urea Nitrogen 25 mg/dL (7-20) Creatinine 2.2 mg/dL (0.6-1.0) Estimated GFR (Cockcroft-Gault) 29.6 Glucose Level 75 mg/dL (70-99) Calcium Level 7.6 mg/dL (8.5-10.1) Phosphorus Level 2.7 mg/dL (2.6-4.7) Magnesium Level 1.8 mg/dL (1.8-2.4) Micro Micro Microbiology 10/14/21 Urine Culture - Final, Complete 10/14/21 Blood Culture - Preliminary, Resulted NO GROWTH AFTER 2 DAYS Review of Systems Constitutional: yes: other (UNRELIABLE) Physical Exam General Appearance: no apparent distress Skin: warm Respiratory: bilateral CTA Heart: S1S2 Abdomen: soft, bowel sounds present Genitourinary: bladder flat, other (SPC CATHETER) Assessment Assessment IMP DKA MET ACIDOSIS-BETTER RESP ALKALOSIS-RESOLVED LEUCOCYTOSIS POSSIBLE SEPSIS HYPOTENSION SEVERE LIFE THREATENING HYPERKALEMIA ACUTE KIDNEY INJURY-CR IMPROVED TO 2.2 PROB CKD-UNKNOWN STAGE-SEES DR NAV[facility]RETE AT [facility] SEVERE ANEMIA-CHRONIC VS ACUTE BLOOD LOSS URINARY TRACT INFECTION-SPC SINCE JUNE PER PT MET ENCEPHALOPATHY-RESOLVING PLAN HYDRATION SPC CHANGED ANTIBIOTICS LABS IN AM WILL FOLLOW CONSUELO GARCIA MD October 17, 2021 10:58
[2021-10-17] MEDS ORDERED: PANT40TA77 PO (11:07)
--- NOTE | 2021-10-17 11:08 | SNU/HH DC ---
DISCHARGE WITH HOME HEALTH DISCHARGE INFORMATION: Condition on Discharge: Stable CODE STATUS: Code Status: Full HOME HEALTH: Face to Face: I certify this patient is under my care and that I, or a nurse practitioner or physician's assistant elementary teacher working with me, had a face to face encounter that meets the physician face to face encounter requirements with this patient on []. Medical Complications: Other (Multiple amputations recent DKA) Penitentiary For: Assess Cardiopulm Status RN For Eval/Treatment: Yes Physical Therapy For: Evalulation/Treatment Occupational Therapy For: Evaluation/Treatment Home Health Aide For: Self-care SUPPLY ASSISTANT For: Community Resources Pt Meets Homebound Status: Poor coordination w/ amb. POST DISCHARGE ORDERS: DIET AFTER DISCHARGE: ADA CERTIFICATION STATEMENT: Certification Statement: Certification Statement: Based on the above finding, I certify that this patient is confined to the home and needs intermittent longterm care, physical therapy and/or speech therapy, or continues to need occupational therapy.~ This patient is under my care, and I have initiated the establishment of the plan of care.~ This patient will be followed by myself or a community physician who will periodically review the plan of care. Home Meds Reported Medications Insulin Lispro (HUMALOG) 100 Unit/1 Ml Vial, 0 SQ QIDACHS for dm, EACH per pt sliding scale 10/17/21 Ferrous Sulfate (IRON) 325 Mg Tablet, 1 TAB PO DAILY for 30 Days, #30 TAB 0 Refills 10/14/21 Duloxetine Hcl (CYMBALTA) 30 Mg Capsule.dr, 1 CAP PO DAILY, #30 CAP 5 Refills 10/14/21 Atorvastatin Calcium (ATORVASTATIN CALCIUM) 40 Mg Tablet, 1 TAB PO DAILY, #30 TAB 5 Refills 10/14/21 Midodrine Hcl (MIDODRINE HCL) 2.5 Mg Tablet, 2.5 MG PO DAILY, TAB 10/14/21 Hydrocodone Bit/Acetaminophen (HYDROCODONE-APAP 7.5-325 ) 1 Tab Tablet, 1 TAB PO PRN Q6HRS PRN for PAIN, TAB 0 Refills 10/14/21 Zolpidem Tartrate (AMBIEN) 10 Mg Tablet, 10 MG PO PRN QHS PRN for INSOMNIA, TAB 0 Refills 10/14/21 Fluconazole (FLUCONAZOLE) 200 Mg Tablet, 1 TAB PO DAILY, #14 TAB 10/14/21 Hyoscyamine Sulfate (HYOSCYAMINE SULFATE) 0.125 Mg Tab.rapdis, 0.125 MG PO Q4HRS, TAB 10/14/21 Gabapentin (GABAPENTIN) 600 Mg Tablet, 900 MG PO DAILY for NEUROGENIC PAIN, TAB 10/14/21 RAINE CHACON III DO October 17, 2021 11:08
--- NOTE | 2021-10-17 11:54 | PDOC ---
Infectious Disease Note Subjective Subjective pt is feeling good, ready to go home ROS ROS no n/v/d/sob Vital Sign Vital Signs Vital Signs Date Time Temp Pulse Resp B/P (MAP) Pulse Ox O2 Delivery O2 Flow Rate FiO2 10/17/21 08:06 98 120/79 10/17/21 07:00 97.4 18 99 Room Air 97.4 Physical Exam PHYSICAL EXAM GENERAL: Awake female, not in distress. VITAL SIGNS: stable HEENT: Both pupils are round and reacting. No conjunctival lesion, no lesion in the mouth. NECK: Supple, no JVP, no lymphadenopathy. LUNGS: Clear. HEART: S1, S2, regular. ABDOMEN: Soft, nontender, no organomegaly. EXTREMITIES: Right third digit is amputated, left TMA in the leg. Right calcaneal wound has a superficial healthy red granulation tissue with ulcer. There is some minor ulcer on the left middle finger. SKIN: Rest of the skin exam is unremarkable. NEUROLOGIC: The patient is alert, awake, and appropriate, able to communicate and moves all the extremities. No focal deficit. Labs Lab Laboratory Tests Test 10/17/21 06:00 10/17/21 09:17 10/17/21 09:38 10/17/21 11:01 White Blood Count 6.4 x10^3/uL (4.0-11.0) Red Blood Count 3.08 x10^6/uL (3.50-5.40) Hemoglobin 8.6 g/dL (12.0-15.5) Hematocrit 26.2 % (36.0-47.0) Mean Corpuscular Volume 85 fL (79-100) Mean Corpuscular Hemoglobin 28 pg (25-35) Mean Corpuscular Hemoglobin Concent 33 g/dL (31-37) Red Cell Distribution Width 17.0 % (11.5-14.5) Platelet Count 260 x10^3/uL (140-400) Neutrophils (%) (Auto) 57 % (31-73) Lymphocytes (%) (Auto) 31 % (24-48) Monocytes (%) (Auto) 6 % (0-9) Eosinophils (%) (Auto) 4 % (0-3) Basophils (%) (Auto) 1 % (0-3) Neutrophils # (Auto) 3.7 x10^3/uL (1.8-7.7) Lymphocytes # (Auto) 2.0 x10^3/uL (1.0-4.8) Monocytes # (Auto) 0.4 x10^3/uL (0.0-1.1) Eosinophils # (Auto) 0.3 x10^3/uL (0.0-0.7) Basophils # (Auto) 0.1 x10^3/uL (0.0-0.2) Sodium Level 143 mmol/L (136-145) Potassium Level 4.6 mmol/L (3.5-5.1) Chloride Level 112 mmol/L (98-107) Carbon Dioxide Level 22 mmol/L (21-32) Anion Gap 9 (6-14) Blood Urea Nitrogen 25 mg/dL (7-20) Creatinine 2.2 mg/dL (0.6-1.0) Estimated GFR (Cockcroft-Gault) 29.6 Glucose Level 75 mg/dL (70-99) Calcium Level 7.6 mg/dL (8.5-10.1) Phosphorus Level 2.7 mg/dL (2.6-4.7) Magnesium Level 1.8 mg/dL (1.8-2.4) Glucose (Fingerstick) 88 mg/dL (70-99) 32 mg/dL (70-99) 179 mg/dL (70-99) Micro Microbiology 10/14/21 Urine Culture - Final, Complete 10/14/21 Blood Culture - Preliminary, Resulted NO GROWTH AFTER 2 DAYS Objective Assessment IMPRESSION: 1. Diabetic ketoacidosis. 2. Lactic acidosis. 3. Catheter associated urinary tract infection. 4. Encephalopathy. 5. Renal insufficiency. 6. Multiple wounds including superficial wound on the right calcaneum. 7. Diabetes. 8. Hypertension. Plan Plan of Care po vanin ok to d/c ELEANOR PEDRO MD October 17, 2021 11:54
[2021-10-17] MEDS ORDERED: PIPERACILLIN/TAZOBACTAM 2.25 GM in IV NORMAL SALINE 50ML 50 ML IV SCH (12:00)
--- NOTE | 2021-10-17 12:39 | PDOC ---
[facility] PROGRESS NOTE Date of Service DOS: DATE: 10/17/21 TIME: 12:39 Chief Complaint Chief Complaint Resolving DKA Sepsis Hemodynamic instability Acute metabolic encephalopathy DKA Severe hyperkalemia with EKG changes Anion gap metabolic acidosis due to above TAMARA due to vasomotor nephropathy Normocytic anemia due to MARISELA versus acute blood loss Severe protein malnutrition Suprapubic Sifuentes Noncompliance History of Present Illness History of Present Illness 2019 Patient seen and examined Discussed with RN Chart reviewed She appears to be at her baseline We will go ahead and discharge 10/16/2021 Patient seen and examined Discussed with RN Discussed with case management Chart reviewed Her anion gap is closed Will transfer out of ICU later today on scheduled insulin 10/15/2021 Patient seen and examined She seems very lethargic does not talk Discussed with RN Chart reviewed Her gap is now closed I discussed with pharmacy I am going to start NovoLog 10 units 3 times daily and Lantus 20 at bedtime Vitals/I&O Vitals/I&O: Vital Signs Date Time Temp Pulse Resp B/P (MAP) Pulse Ox O2 Delivery O2 Flow Rate FiO2 10/17/21 08:06 98 120/79 10/17/21 07:00 97.4 18 99 Room Air 97.4 I & O 10/16/21 10/16/21 10/17/21 15:00 23:00 07:00 Intake Total 300 ml 2100 ml Output Total 750 ml 2850 ml Balance -450 ml -750 ml Physical Exam Physical Exam: GENERAL: Awake female, not in distress. VITAL SIGNS: stable HEENT: Both pupils are round and reacting. No conjunctival lesion, no lesion in the mouth. NECK: Supple, no JVP, no lymphadenopathy. LUNGS: Clear. HEART: S1, S2, regular. ABDOMEN: Soft, nontender, no organomegaly. EXTREMITIES: Right third digit is amputated, left TMA in the leg. Right calcaneal wound has a superficial healthy red granulation tissue with ulcer. There is some minor ulcer on the left middle finger. SKIN: Rest of the skin exam is unremarkable. NEUROLOGIC: The patient is alert, awake, and appropriate, able to communicate and moves all the extremities. No focal deficit. General: Cooperative, No acute distress Heart: Regular rate Abdomen: Normal bowel sounds, Soft, No tenderness Extremities: No clubbing Skin: No breakdown Labs Labs: Laboratory Tests Test 10/17/21 06:00 10/17/21 09:17 10/17/21 09:38 10/17/21 11:01 White Blood Count 6.4 x10^3/uL (4.0-11.0) Red Blood Count 3.08 x10^6/uL (3.50-5.40) Hemoglobin 8.6 g/dL (12.0-15.5) Hematocrit 26.2 % (36.0-47.0) Mean Corpuscular Volume 85 fL (79-100) Mean Corpuscular Hemoglobin 28 pg (25-35) Mean Corpuscular Hemoglobin Concent 33 g/dL (31-37) Red Cell Distribution Width 17.0 % (11.5-14.5) Platelet Count 260 x10^3/uL (140-400) Neutrophils (%) (Auto) 57 % (31-73) Lymphocytes (%) (Auto) 31 % (24-48) Monocytes (%) (Auto) 6 % (0-9) Eosinophils (%) (Auto) 4 % (0-3) Basophils (%) (Auto) 1 % (0-3) Neutrophils # (Auto) 3.7 x10^3/uL (1.8-7.7) Lymphocytes # (Auto) 2.0 x10^3/uL (1.0-4.8) Monocytes # (Auto) 0.4 x10^3/uL (0.0-1.1) Eosinophils # (Auto) 0.3 x10^3/uL (0.0-0.7) Basophils # (Auto) 0.1 x10^3/uL (0.0-0.2) Sodium Level 143 mmol/L (136-145) Potassium Level 4.6 mmol/L (3.5-5.1) Chloride Level 112 mmol/L (98-107) Carbon Dioxide Level 22 mmol/L (21-32) Anion Gap 9 (6-14) Blood Urea Nitrogen 25 mg/dL (7-20) Creatinine 2.2 mg/dL (0.6-1.0) Estimated GFR (Cockcroft-Gault) 29.6 Glucose Level 75 mg/dL (70-99) Calcium Level 7.6 mg/dL (8.5-10.1) Phosphorus Level 2.7 mg/dL (2.6-4.7) Magnesium Level 1.8 mg/dL (1.8-2.4) Glucose (Fingerstick) 88 mg/dL (70-99) 32 mg/dL (70-99) 179 mg/dL (70-99) Assessment and Plan Assessmemt and Plan Sepsis Hemodynamic instability Acute metabolic encephalopathy DKA Severe hyperkalemia with EKG changes Anion gap metabolic acidosis due to above TAMARA due to vasomotor nephropathy Normocytic anemia due to MARISELA versus acute blood loss Severe protein malnutrition Suprapubic Sifuentes Noncompliance Plan Discharge see dictation Comment Review of Relevant I have reviewed the following items devi (where applicable) has been applied. Medications: Current Medications Medications (Trade) Dose Ordered Sig/Miriam Route PRN Reason Start Time Stop Time Status Last Admin Dose Admin Multivitamins/ Minerals (I-Kapil) 1 tab DAILY PO 10/16/21 14:00 10/17/21 08:06 Atorvastatin Calcium (Lipitor) 40 mg DAILY PO 10/17/21 09:00 10/17/21 08:05 Duloxetine HCl (Cymbalta) 30 mg DAILY PO 10/17/21 09:00 10/17/21 08:05 Ferrous Sulfate (Feosol) 325 mg DAILY PO 10/17/21 09:00 10/17/21 08:06 Acetaminophen/ Hydrocodone Bitart (Lortab 7.5/325) 1 tab PRN Q6HRS PRN PO PAIN 10/16/21 15:00 10/16/21 22:37 Midodrine (Proamatine) 2.5 mg DAILY PO 10/17/21 09:00 10/17/21 08:06 Fluconazole (Diflucan) 200 mg DAILY PO 10/17/21 09:00 10/17/21 08:06 Gabapentin (Neurontin) 600 mg DAILY PO 10/17/21 09:00 10/17/21 11:21 DC 10/17/21 08:06 Pantoprazole Sodium (Protonix) 40 mg DAILYAC PO 10/17/21 08:00 10/17/21 08:05 Justifications for Admission Other Justification RAINE CHACON III DO October 17, 2021 12:39
--- NOTE | 2021-10-17 14:22 | NUR ---
Wound Care Pt discharged prior to WC team arrival.
[2021-10-17] MEDS ORDERED: LACTOBACILLUS RHAMNOSUS GG 1 CAPSULE. PO SCH (21:00)
--- NOTE | 2021-10-17 22:53 | DS ---
DATE OF DISCHARGE: 10/17/2021 ADMISSION DIAGNOSES: Diabetic ketoacidosis, sepsis, metabolic encephalopathy, and acute kidney injury. DISCHARGE DIAGNOSES: Resolving diabetic ketoacidosis and history of multiple amputations including TMA and some fingers, multiple skin wounds, resolving sepsis, resolving metabolic encephalopathy, resolving hyperkalemia, resolving acute kidney injury, chronic anemia, malnutrition, suprapubic Sifuentes, and noncompliance. HOSPITAL COURSE: The patient is a pleasant 41-year-old female who has multiple comorbidities and she is noncompliant. She presented with DKA and sepsis. We gave her DKA protocol and IV antibiotics. Over the next few days, she slowly returned to baseline. Today, I saw and examined her. She is doing well, tolerating food, wants to go home. We plan to discharge. DISPOSITION: Home. ACTIVITY: As tolerated. DIET: Low sodium. DISCHARGE MEDICATIONS: Please see the MRAD. TOTAL TIME: [address]: Christy TID: [id number]
[2021-10-18] MEDS ORDERED: GABAPENTIN 300 MG CAPSULE. PO SCH (09:00)
== END 2021-10-17 12:40 | disposition home or self-care (01) | DRG 871 ==
LOC: ER 15:09 → 1 WEST ICU 18:12
PROVIDERS: ADMIT Internal Medicine; ATTEND Internal Medicine
PROC: 30233N1 Transfusion of Nonautologous Red Blood Cells into Peripheral Vein, Percutaneous Approach (ICD-10-PCS; principal; 2021-10-14)
PROC: 02HV33Z Insertion of Infusion Device into Superior Vena Cava, Percutaneous Approach (ICD-10-PCS; 2021-10-14)
DX: A41.9 Sepsis, unspecified organism (principal); E10.10 Type 1 diabetes mellitus with ketoacidosis without coma; N17.0 Acute kidney failure with tubular necrosis; G93.41 Metabolic encephalopathy; E43 Unspecified severe protein-calorie malnutrition; T83.518A Infection and inflammatory reaction due to other urinary catheter, initial encounter; N39.0 Urinary tract infection, site not specified; E87.3 Alkalosis; I13.0 Hypertensive heart and chronic kidney disease with heart failure and stage 1 through stage 4 chronic kidney disease, or unspecified chronic kidney disease; D64.9 Anemia, unspecified; E10.22 Type 1 diabetes mellitus with diabetic chronic kidney disease; E10.40 Type 1 diabetes mellitus with diabetic neuropathy, unspecified; E87.5 Hyperkalemia; I50.9 Heart failure, unspecified; N18.9 Chronic kidney disease, unspecified; Y84.6 Urinary catheterization as the cause of abnormal reaction of the patient, or of later complication, without mention of misadventure at the time of the procedure; Y92.003 Bedroom of unspecified non-institutional (private) residence as the place of occurrence of the external cause; Z79.4 Long term (current) use of insulin; Z82.49 Family history of ischemic heart disease and other diseases of the circulatory system; Z83.3 Family history of diabetes mellitus; Z91.14 Patient's other noncompliance with medication regimen; Z91.19 Patient's noncompliance with other medical treatment and regimen; G62.9 Polyneuropathy, unspecified
CPT/HCPCS: 36415; 36430; 36600; 70450; 71045; 74176; 80048; 80053; 80202; 80307; 81001; 82550; 82805; 82947; 82962; 83540; 83550; 83605; 83690; 83735; 83880; 84100; 84145; 84443; 84484; 85025; 85610; 85730; 86850; 86900; 86901; 86920; 87040; 87086; 93005; 96361; 96365; 96375; 96376; C9113; J0610; J0780; J1644; J1815; J2270; J2405; J2543; J3370; J3475; J3480; J3490; J7030; J7042; J7050; P9016; 99285-25; G0378